=== PATIENT | female | born 1975 | race Caucasian/White ===

== ENCOUNTER 2020-08-17 10:31 | Outpatient (REF) | payer OTHER, SELFPAY ==
[2020-08-17 10:52] LABS: COVID-19 Test Negative (Negative)
== END 2020-08-17 10:32 | disposition home or self-care (01) ==
LOC: HO.LAB 10:31
PROVIDERS: Visit Provider Internal Medicine
DX: Z20.828 Contact with and (suspected) exposure to other viral communicable diseases (principal)
CPT/HCPCS: 87635

== ENCOUNTER → 2020-10-22 07:59 | Outpatient (BNVA) | payer OTHER, SELFPAY | PROVIDERS: PCP Internal Medicine; Visit Provider Advanced Practice Midwife | DX: Z76.89 Persons encountering health services in other specified circumstances (principal) ==

== ENCOUNTER 2020-10-22 14:14 | Outpatient (REF) | payer OTHER, SELFPAY ==
--- NOTE | 2020-10-22 14:30 | US_ITS ---
EXAMINATION: US PELVIS ULTRASOUND CLINICAL INFORMATION: R10.2 - Pelvic and perineal pain. Age 44. COMPARISON: Pelvic ultrasound 10/11/2018 TECHNIQUE: Ultrasound of the pelvis is performed using both transabdominal and transvaginal transducers along with Doppler. Transvaginal imaging is performed due to inadequate visualization transabdominally. FINDINGS: Uterus: The uterus is anteverted and measures 10.7 x 4.2 x 6.7 cm. The double wall endometrial thickness is normal at 9 mm. There is an IUD in position. There is a posterior right fundal intramural and subserous fibroid measuring 4.3 x 4.0 x 3.6 cm. This compares with prior measurements 1.9 x 1.9 x 1.7 cm. There is a 0.8 cm nabothian cyst in the cervix. Adnexa: Right ovary measures 3.0 x 2.0 x 2.9 cm. Left ovary measures 5.4 x 4.1 x 4.8 cm. There is a simple cyst left ovary measuring 4.0 x 3.0 x 3.3 cm. No internal septation or solid component or associated color flow. No pelvic ascites. US/US transvaginal IMPRESSION: 1. Uterus: Posterior right fundal fibroid 4.3 cm, increased in size from prior study 10/11/2018 (1.9 cm). 2. Adnexa: Simple cyst left ovary 4.0 cm. Right ovary unremarkable. No pelvic ascites.
--- NOTE | 2020-10-22 14:30 | US_ITS ---
EXAMINATION: US PELVIS ULTRASOUND CLINICAL INFORMATION: R10.2 - Pelvic and perineal pain. Age 44. COMPARISON: Pelvic ultrasound 10/11/2018 TECHNIQUE: Ultrasound of the pelvis is performed using both transabdominal and transvaginal transducers along with Doppler. Transvaginal imaging is performed due to inadequate visualization transabdominally. FINDINGS: Uterus: The uterus is anteverted and measures 10.7 x 4.2 x 6.7 cm. The double wall endometrial thickness is normal at 9 mm. There is an IUD in position. There is a posterior right fundal intramural and subserous fibroid measuring 4.3 x 4.0 x 3.6 cm. This compares with prior measurements 1.9 x 1.9 x 1.7 cm. There is a 0.8 cm nabothian cyst in the cervix. Adnexa: Right ovary measures 3.0 x 2.0 x 2.9 cm. Left ovary measures 5.4 x 4.1 x 4.8 cm. There is a simple cyst left ovary measuring 4.0 x 3.0 x 3.3 cm. No internal septation or solid component or associated color flow. No pelvic ascites. US/US pelvic complete IMPRESSION: 1. Uterus: Posterior right fundal fibroid 4.3 cm, increased in size from prior study 10/11/2018 (1.9 cm). 2. Adnexa: Simple cyst left ovary 4.0 cm. Right ovary unremarkable. No pelvic ascites.
== END 2020-10-22 14:15 | disposition home or self-care (01) ==
LOC: HO.HMGCX 14:14
PROVIDERS: PCP Internal Medicine; Visit Provider Advanced Practice Midwife
DX: Z30.431 Encounter for routine checking of intrauterine contraceptive device (principal); R10.2 Pelvic and perineal pain
CPT/HCPCS: 76830; 76856

== ENCOUNTER → 2020-10-25 09:25 | Outpatient (BNVA) | payer OTHER, SELFPAY | PROVIDERS: PCP Internal Medicine; Visit Provider Advanced Practice Midwife | DX: Z76.89 Persons encountering health services in other specified circumstances (principal) ==

== ENCOUNTER → 2021-02-11 07:42 | Outpatient (BNVA) | payer OTHER, SELFPAY | PROVIDERS: PCP Internal Medicine; Visit Provider Advanced Practice Midwife ==

== ENCOUNTER 2022-02-23 08:01 | Outpatient (REF) | payer OTHER, SELFPAY ==
[2022-02-23 09:57] LABS: Hematocrit 44.7 % (37.0-47.0); Hemoglobin 14.3 g/dl (12.0-16.0); Mean Corpuscular Hemoglobin 27.9 pg (27.0-33.0); Mean Corpuscular Volume 87.3 fL (80.0-98.0); Mean Platelet Volume 9.2 fL (9.4-12.3); Platelet Count 248 X10*3/uL (160-400); Red Blood Count 5.12 X10*6/uL (4.20-5.50); Red Cell Distribution Width 13.2 % (11.0-16.0)
[2022-02-23 11:12] LABS: Thyroid Stimulating Hormone 1.45 uIU/mL (0.32-4.0)
[2022-02-23 13:50] LABS: CT PCR NOT DETECTED (Not Detect.); NG PCR NOT DETECTED (Not Detect.)
[2022-02-24 10:54] LABS: BV Int Neg Control Negative (Negative); BV Int Pos Control Positive (Positive)
[2022-02-28 12:06] LABS: HPV mRNA E6/E7 rflx Not Detected (Not Detected)
== END 2022-02-23 08:02 | disposition home or self-care (01) ==
LOC: HO.LAB 08:01
PROVIDERS: PCP Nurse Practitioner Family; Visit Provider Advanced Practice Midwife
DX: Z01.419 Encounter for gynecological examination (general) (routine) without abnormal findings (principal); N92.1 Excessive and frequent menstruation with irregular cycle; D25.9 Leiomyoma of uterus, unspecified; R33.9 Retention of urine, unspecified; R32 Unspecified urinary incontinence; Z11.3 Encounter for screening for infections with a predominantly sexual mode of transmission; Z11.51 Encounter for screening for human papillomavirus (HPV); Z13.29 Encounter for screening for other suspected endocrine disorder; Z87.891 Personal history of nicotine dependence; Z97.5 Presence of (intrauterine) contraceptive device
CPT/HCPCS: 36415; 84443; 85027; 87480; 87491; 87510; 87591; 87624; 87660; 88142

== ENCOUNTER 2022-03-09 09:34 | Outpatient (REF) | payer OTHER, SELFPAY ==
--- NOTE | ~2022-03-09 | US_ITS ---
EXAMINATION: US PELVIS CLINICAL INFORMATION: Excessive and frequent menstruation. History of uterine fibroids. COMPARISON: 10/22/2020 pelvic ultrasound. TECHNIQUE: Ultrasound of the pelvis is performed using both transabdominal and transvaginal transducers along with Doppler. Transvaginal imaging is performed due to inadequate visualization transabdominally. FINDINGS: Uterus: Uterus: Anteverted/anteflexed measuring 10.0 x 7.3 x 7.3 cm. A large intramural fibroid in the right fundus and body measures 6.2 x 6.0 x 5.7 cm (previously 4.3 x 4.0 x 3.6 cm). An initial stripe measures up to 1.0 cm at the level the fundus. A linear echogenic focus is seen extending from the cervical canal along the posterior margin of the endometrium to the level of the fundus. No surrounding abnormality. The cervix is closed without focal abnormality. No free fluid in the cul-de-sac. Right ovary: 3.9 x 2.6 x 2.6 cm with a volume of 11.3 cc. An anechoic cyst measures 3.7 cm. Doppler showed no abnormal vascular flow. Left ovary: 4.0 x 3.0 x 2.9 cm with a volume of 18.4 cc. Doppler showed no abnormal vascular flow. US/US pelvic and transvaginal IMPRESSION: 1. Enlarged fibroid uterus with interval increase in uterine fibroid as detailed above. 2. Echogenic focus in the region of the cervix and endometrial canal posteriorly may represent an IUD. Its exact location at the level the fundus cannot be definitively determined. Correlate with history of IUD. A pelvic radiograph may be of value to assess for presence of the IUD. 3. No significant ovarian abnormality.
== END 2022-03-09 09:35 | disposition home or self-care (01) ==
LOC: HO.HMGCX 09:34
PROVIDERS: Visit Provider Advanced Practice Midwife
DX: D25.9 Leiomyoma of uterus, unspecified (principal); N92.1 Excessive and frequent menstruation with irregular cycle; Z97.5 Presence of (intrauterine) contraceptive device
CPT/HCPCS: 76830; 76856

== ENCOUNTER → 2022-03-16 15:49 | Outpatient (BNVA) | payer OTHER, SELFPAY | PROVIDERS: PCP Nurse Practitioner Family; Visit Provider Advanced Practice Midwife | DX: Z13.89 Encounter for screening for other disorder (principal) ==

== ENCOUNTER 2022-03-17 13:23 | Outpatient (REF) | payer OTHER, SELFPAY ==
--- NOTE | ~2022-03-17 | XR_ITS ---
EXAMINATION: XR PELVIS CLINICAL INFORMATION: In counterpart for routine checking of intrauterine device COMPARISON: Pelvic ultrasound 03/09/2022 TECHNIQUE: AP view of the pelvis. XR/XR pelvis 1-2V FINDINGS/IMPRESSION: Pelvic ring is intact. There are mild degenerative changes of both hips without fracture or dislocation. Sacroiliac joints appear symmetric. IUD projects over the midline pelvis.
== END 2022-03-17 13:24 | disposition home or self-care (01) ==
LOC: HO.XRAY 13:23
PROVIDERS: PCP Nurse Practitioner Family; Visit Provider Advanced Practice Midwife
DX: Z30.431 Encounter for routine checking of intrauterine contraceptive device (principal)
CPT/HCPCS: 72170

== ENCOUNTER 2022-03-31 10:37 | Outpatient (REF) | payer OTHER, SELFPAY | END 2022-03-31 10:38 | disposition home or self-care (01) | LOC: HO.LAB 10:37 | PROVIDERS: Visit Provider Advanced Practice Midwife | DX: N92.1 Excessive and frequent menstruation with irregular cycle (principal); D25.9 Leiomyoma of uterus, unspecified; Z30.432 Encounter for removal of intrauterine contraceptive device | CPT/HCPCS: 58100; 58301; 88305 ==

== ENCOUNTER 2022-06-26 08:54 | Outpatient (REF) | payer OTHER, SELFPAY ==
--- NOTE | ~2022-06-26 | MM_ITS ---
EXAMINATION: MM SCREENING DIGITAL BREAST TOMOSYNTHESIS, BILATERAL CLINICAL INFORMATION: Screening. Asymptomatic. The lifetime risk of breast cancer based on the Tyrer-Cuzick Model is 7%. COMPARISON: Mammography: 11/18/2019, 09/26/2018; outside mammography 02/14/2013 ([facility]). TECHNIQUE: Digital breast tomosynthesis is performed in both the craniocaudal and mediolateral oblique views along with computer-aided detection (CAD). Synthesized 2D images are generated from the tomosynthesis. FINDINGS: There are scattered areas of fibroglandular density (ACR BI-RADS breast composition Category b). Breast tissue composition borders on heterogeneously dense. There are no significant masses, abnormal calcifications, or other abnormalities. Parenchymal pattern is similar to prior studies. There is no developing density or architectural abnormality. The axilla and skin contours are unremarkable. No significant changes. MM/MM tomosynthesis screening BI IMPRESSION: No mammographic evidence of malignancy. ASSESSMENT: BI-RADS 1: Negative RECOMMENDATION: Routine annual mammography screening. This patient's information was entered into a reminder system with a target due date for their next mammogram.
== END 2022-06-26 08:55 | disposition home or self-care (01) ==
LOC: HO.MAMMO 08:54
PROVIDERS: Visit Provider Advanced Practice Midwife
DX: Z12.31 Encounter for screening mammogram for malignant neoplasm of breast (principal)
CPT/HCPCS: 77063; 77067

== ENCOUNTER → 2022-07-31 10:00 | Outpatient (RCR) | payer OTHER, SELFPAY ==
[2020-08-23 13:45] LABS: COVID-19 Test Negative (Negative)
[2020-08-31 11:27] LABS: COVID-19 Test Negative (Negative)
[2020-09-06 14:42] LABS: COVID-19 Test Negative (Negative)
[2020-09-30 10:03] LABS: SARS-COV-2 PCR UMBRL Not Detected
[2020-10-07 12:33] LABS: SARS-COV-2 PCR UMBRL Not Detected
[2020-10-14 10:33] LABS: SARS-COV-2 PCR UMBRL Not Detected
[2020-10-21 09:46] LABS: SARS-COV-2 PCR UMBRL Not Detected
[2020-10-28 13:26] LABS: SARS-COV-2 PCR UMBRL Not Detected
== END | disposition home or self-care (01) ==
LOC: HO.EMPCOV 08-23 13:24
PROVIDERS: Visit Provider Internal Medicine
DX: Z20.828 Contact with and (suspected) exposure to other viral communicable diseases (principal)
CPT/HCPCS: 36415; 87635; C9803; U0003

== ENCOUNTER 2022-10-23 10:42 | Outpatient (REF) | payer OTHER, SELFPAY ==
--- NOTE | ~2022-10-23 | US_ITS ---
EXAMINATION: US PELVIS CLINICAL INFORMATION: Leiomyoma of the uterus. COMPARISON: Ultrasound pelvis and transvaginal 03/09/2022. TECHNIQUE: Ultrasound of the pelvis is performed using both transabdominal and transvaginal transducers along with Doppler. Transvaginal imaging is performed due to inadequate visualization transabdominally. FINDINGS: Uterus: The uterus is anteverted, anteflexed and measures 11.9 cm in length, 8.3 cm AP and 9.3 cm in transverse dimension. The double wall endometrial thickness is 0.5 cm. The uterus is smooth in contour and has normal myometrial echogenicity. There is a solitary hypoechoic lesion in the right fundus measuring 7.2 x 7.0 x 6.7 cm. Previously it measured 6.0 x 6.2 x 5.7 cm.. There is a small anechoic cyst in the cervix. Adnexa: Both ovaries are visualized. There is normal color flow to the adnexa. There is no ovarian torsion. There is no pelvic ascites or fluid collection. Right ovary measures 3.7 x 2.3 x 2.4 cm and volume 10.7 mL. There is anechoic cyst measuring 2.0 x 2.0 x 2.4 cm. Previously right ovary measured 3.2 x 2.6 x 2.6 cm. Left ovary measures 4.2 x 3.0 x 3.0 cm and volume 19.8 mL. There is anechoic cyst measuring 2.6 x 2.7 x 2.3 cm. Previously left ovary measured 4.0 x 3.0 x 2.9 cm and volume 18.4 mL. There is no free fluid in the cul-de-sac. US/US pelvic and transvaginal IMPRESSION: 1. Solitary right fundal fibroid measuring 7.2 cm. Minimal increase in size. 2. Small nabothian cysts in the cervix. 3. Bilateral ovarian cysts. 4. There is no free fluid in the cul-de-sac.
== END 2022-10-23 10:43 | disposition home or self-care (01) ==
LOC: HO.US 10:42
PROVIDERS: Visit Provider Obstetrics & Gynecology
DX: D25.9 Leiomyoma of uterus, unspecified (principal)
CPT/HCPCS: 76830; 76856

== ENCOUNTER → 2022-10-30 14:14 | Outpatient (BNVA) | payer OTHER, SELFPAY | PROVIDERS: PCP Nurse Practitioner Family; Visit Provider Obstetrics & Gynecology | DX: Z13.89 Encounter for screening for other disorder (principal) ==

== ENCOUNTER 2022-11-08 08:06 | Outpatient (REF) | payer OTHER, SELFPAY ==
--- NOTE | ~2022-11-08 | MR_ITS ---
EXAMINATION: MRI PELVIS WITH AND WITHOUT CONTRAST CLINICAL INFORMATION: Leiomyoma of the uterus COMPARISON: Pelvic ultrasound 03/09/2022 TECHNIQUE: Multiple routine MRI sequences through the pelvis were obtained before and after the uneventful administration of 10 mL of Gadavist gadolinium-based IV contrast. FINDINGS: UTERUS: Anteverted uterus has a normal configuration and measures 9.5 x 6.6 x 8.6 cm ([id number] x anterior-posterior x transverse). Endometrium is uniform and measures 0.6 cm in thickness. Junctional zone is normal in signal and thickness. A 6.7 x 6.3 x 6.1 cm heterogeneous T2 hyperintense transmural myoma in the right body of the uterus, with heterogeneous enhancement, with a T2 hyperintense signal suggesting cystic degeneration. CERVIX: Unremarkable. VAGINA: Unremarkable. OVARIES: The right ovary is unremarkable. The left ovary is remarkable for a 3.2 cm intrinsically T1 hyperintense lesion with a T2 shading sign suggestive of an endometrioma. KIDNEYS: Two normally positioned kidneys are seen. No hydronephrosis. BLADDER: Unremarkable. PELVIC FREE FLUID: No free fluid or ascites. LYMPH NODES: No pathologically enlarged lymph nodes. OSSEOUS STRUCTURES: No acute or suspicious osseous abnormalities. MR/MR pelvis wo/w con IMPRESSION: A 6.7 cm transmural myoma in the right body of the uterus demonstrating heterogeneous T2 hyperintense signal and heterogeneous enhancement suggesting cystic degeneration. A 3.2 cm intrinsically T1 hyperintense lesion in the right ovary with a T2 shading sign suggesting an endometrioma, although differential considerations could include a hemorrhagic cyst. Recommend short interval follow-up pelvic ultrasound in 6-12 weeks, and if findings persist annual sonographic surveillance.
== END 2022-11-08 08:07 | disposition home or self-care (01) ==
LOC: HO.MRI 08:06
PROVIDERS: PCP Nurse Practitioner Family; Visit Provider Obstetrics & Gynecology
DX: D25.9 Leiomyoma of uterus, unspecified (principal)
CPT/HCPCS: 72197; A9585

== ENCOUNTER 2022-11-28 12:24 | Outpatient (REF) | payer OTHER, SELFPAY ==
[2022-11-30 09:39] LABS: CA-125 17 U/mL (<35)
== END 2022-11-28 12:25 | disposition home or self-care (01) ==
LOC: HO.LAB 12:24
PROVIDERS: PCP Nurse Practitioner Family; Visit Provider Obstetrics & Gynecology
DX: N83.299 Other ovarian cyst, unspecified side (principal); D25.9 Leiomyoma of uterus, unspecified
CPT/HCPCS: 36415; 86304

== ENCOUNTER 2023-01-29 10:35 | Outpatient (REF) | payer OTHER, SELFPAY ==
--- NOTE | ~2023-01-29 | US_ITS ---
EXAMINATION: US PELVIS CLINICAL INFORMATION: Leiomyoma of uterus. COMPARISON: Pelvic ultrasound 10/23/2022 TECHNIQUE: Ultrasound of the pelvis is performed using both transabdominal and transvaginal transducers along with Doppler. Transvaginal imaging is performed due to inadequate visualization transabdominally. FINDINGS: Uterus: The uterus is anteverted and measures 7.9 x 4.5 x 8.6 cm. The double wall endometrial thickness is 1.6 mm. There is a right fundal fibroid measuring 6.7 x 5.4 x 5.8 cm, previously measuring 7.2 x 7.0 x 6.7 cm. Adnexa: Both ovaries are visualized. There is normal color flow to the adnexa. There is no ovarian torsion. There is no pelvic ascites or fluid collection. Right ovary measures 3.2 x 2.1 x 2.1 cm. Volume 7.4 mL. 1.7 cm cyst with debris has decreased in size from the prior pelvic MRI and is most likely sequela of a hemorrhagic cyst. Left ovary measures 3.2 x 2.7 x 2.6 cm. Volume 11.8 mL. 2.3 cm physiologic cyst in the left ovary. US/US pelvic and transvaginal IMPRESSION: Stable to slightly decreased right fundal fibroid.
== END 2023-01-29 10:36 | disposition home or self-care (01) ==
LOC: HO.US 10:35
PROVIDERS: PCP Nurse Practitioner Family; Visit Provider Obstetrics & Gynecology
DX: N83.299 Other ovarian cyst, unspecified side (principal); D25.9 Leiomyoma of uterus, unspecified
CPT/HCPCS: 76830; 76856

== ENCOUNTER → 2023-02-12 12:33 | Outpatient (BNVA) | payer OTHER, SELFPAY | PROVIDERS: PCP Nurse Practitioner Family; Visit Provider Obstetrics & Gynecology | DX: Z13.89 Encounter for screening for other disorder (principal) ==

== ENCOUNTER → 2023-02-27 07:57 | Outpatient (BNVA) | payer OTHER, SELFPAY | PROVIDERS: PCP Nurse Practitioner Family; Visit Provider Advanced Practice Midwife ==

== ENCOUNTER 2023-05-16 10:48 | Outpatient (REF) | payer OTHER, SELFPAY ==
--- NOTE | ~2023-05-16 | US_ITS ---
EXAMINATION: US PELVIS COMPLETE CLINICAL INFORMATION: Ovarian cyst COMPARISON: Pelvic ultrasound 01/29/2023 TECHNIQUE: Transabdominal and transvaginal imaging was performed. FINDINGS: The uterus is of enlarged measuring 12.2 x 8.1 x 8.6 cm. A regular homogeneous endometrium is identified measuring 0.7 cm. Nabothian cysts in the cervix. A 7.2 x 7.0 x 7.5 cm transmural myoma in the right fundus of the uterus, previously 6.7 x 5.4 x 5.8 cm Both ovaries are of normal size and echogenicity. The right measures 3.0 x 2.4 x 2.4 cm for a volume of 9.1 mL. The left measures 3.2 x 2.5 x 2.8 cm for a volume of 11.4 mL with only visualized transabdominally. No suspicious adnexal mass. There is no pelvic free fluid. US/US pelvic and transvaginal IMPRESSION: 1. A 7.5 cm transmural myoma in the right fundus of the uterus, previously 6.7 cm. 2. Unremarkable sonographic appearance of the ovaries.
== END 2023-05-16 10:49 | disposition home or self-care (01) ==
LOC: HO.US 10:48
PROVIDERS: Visit Provider Obstetrics & Gynecology
DX: N83.299 Other ovarian cyst, unspecified side (principal); D25.9 Leiomyoma of uterus, unspecified
CPT/HCPCS: 76830; 76856

== ENCOUNTER 2023-05-30 21:40 | Day surgery (SDC) | payer OTHER, SELFPAY ==
--- NOTE | ~2023-05-30 | XR_ITS ---
EXAMINATION: XR ABDOMEN KUB CLINICAL INDICATION: Constipation abdominal pain. COMPARISON: None available. TECHNIQUE: AP view of the abdomen. FINDINGS: There is scattered stool and gas in the colon without any distention. There is no organomegaly. No radiopaque calculi. No bony abnormality. XR/XR KUB IMPRESSION: Unremarkable abdomen exam.
--- NOTE | ~2023-05-30 | CT_ITS ---
EXAMINATION: CT ABDOMEN AND PELVIS WITH CONTRAST CLINICAL INFORMATION: Abdominal pain COMPARISON: None available. TECHNIQUE: Multidetector volumetric images were obtained from the superior aspect of the liver through the pubic symphysis following administration 85 mL of Omnipaque 350 intravenous contrast. Sagittal and coronal reformatted images were obtained on the technologist's workstation. Oral contrast: No This CT examination was performed using dose optimization techniques as appropriate, variously including the following: *Automated exposure control *Adjustment of mA and/or kV according to patient size (this includes techniques or standardized protocols for targeted exams where dose is matched to indication/reason for exam; i.e. extremities or head) *Use of iterative reconstruction technique DLP: 875 mGy-cm FINDINGS: LUNG BASES: The visualized lung bases are unremarkable. LIVER, GALLBLADDER, AND BILIARY TREE: The liver is normal in size, shape, and attenuation. No focal hepatic lesion or biliary ductal dilatation is present. The gallbladder is unremarkable with no evidence of radiopaque gallstones, gallbladder wall thickening, or obvious pericholecystic inflammatory changes. PANCREAS: Unremarkable. SPLEEN: Unremarkable. ADRENAL GLANDS: Unremarkable. KIDNEYS AND URETERS: The kidneys are normal in size, shape, and attenuation. No hydronephrosis, hydroureter, or calculi seen. No perinephric stranding. BLADDER: Unremarkable. GASTROINTESTINAL TRACT: The appendix is thick walled, dilated and opacified, measuring 20 mm in diameter with irregular wall thickening up to 7 mm. Periappendiceal infiltration and fluid are evident, though no drainable collection is detected. There is not an appendicolith. Small nodes are evident in the right lower quadrant mesentery, the largest measuring 5 mm in short axis. The remainder of the colon and the small bowel are otherwise unremarkable, as is the stomach. ABDOMINAL WALL: No significant hernia is appreciated. LYMPH NODES: Normal. VASCULAR: Unremarkable. PELVIC VISCERA: There is a 6.5 x 6 cm mass in the right side of the uterine fundus, deviating the endometrium to the left, most likely a leiomyoma, not significantly changed from pelvic MRI of 11/08/2022. OSSEOUS STRUCTURES: Unremarkable. CT/CT abdomen pelvis w IV con IMPRESSION: 1. Acute appendicitis. 2. Uterine fundal mass likely a leiomyoma, unchanged since pelvic MRI of 11/08/2022. 3. Findings were reported by phone to Kelsey Jason in the [facility] emergency department on 05/31/2023 at 9:00 AM. Fleischner guidelines were followed.
[2023-05-30 22:05] VITALS: BP 131/86; PULSE 90; RESP 16; TEMP 36.9; O2SAT 98; BMI 38.4
--- NOTE | 2023-05-30 23:18 | MHC.EDTECH ---
Pt urine sample collected and sent to lab.
--- OUTSIDE RECORDS SUMMARY | 2023-05-30 23:22 | XMS_ITS | Continuity of Care Document ---
Author Name Unknown Organization [facility] Address [address] [place] [address]- Care Team Providers Care Care Companion Name Role Phone Donaldo AMERICAN INDIAN POLICY SPECIALIST, Priyanka M Primary Care Physician Encounter [facility] Date(s): 04/08/21 - 04/15/21 [facility] [address] [address]- Encounter Diagnosis Obesity(Discharge Diagnosis) - 04/08/21 Chronic GERD(Discharge Diagnosis) - 04/08/21 Physical exam(Discharge Diagnosis) - 04/08/21 SOB (shortness of breath)(Discharge Diagnosis) - 04/10/21 Chronic pain of right knee(Discharge Diagnosis) - 04/10/21 Attending Physician: Doug Cardona MD Allergies, Adverse Reactions, Alerts Substance Reaction Severity Status NKA Active Immunizations Given and Recorded Vaccine Date Status Refusal Reason influenza virus vaccine, inactivated 1 08/24/15 Gi teresa Hepatitis B Vaccine (old term) 04/05/10 Given Hepatitis B Vaccine (old term) 2 02/16/06 Given Hepatitis B Vaccine (old term) 3 01/17/06 Given Measles/Mumps/Rubella Virus Vaccine 04/05/10 Given Measles/Mumps/Rubella Virus Vaccine 4 07/23/09 Giv en influ virus vac, H1N1, inactive(oldterm) 5 10/28/09 Given Influenza Inactive (IM) (oldterm) 6 07/12/09 Given tetanus-diphtheria toxoids (Td) 10/15/03 Given 1Result Comment: [08/24/2015] questionaire answered adequately 2Admin Note: VIS: O04/14 3Admin Note: [id number] 4Admin Note: vis given disposed of vial before recording lot # 5Admin Note: 2008 VIS FORM GIVEN 6Admin Note: vis given Medications No Home Meds Maintenance, 09/21/14 9:55:36, Compound Start Date: 09/21/14 Status: Ordered omeprazole 20 mg oral delayed release tablet 1 tablet = 20 mg, By Mouth, Daily, # 90 tablet, 0 Refills, Maintenance, 04/08/21 12:55:00 EDT, CR Tablet, [id number], Partial fill upon patient request if the prescription is for a schedule II opioid drug., 163.5, cm, 04/08/21 12:33:00 EDT, He... Start Date: 04/08/21 Stop Date: 07/07/21 Status: Ordered Problem List Condition Effective Dates Status Health Status Inform ant Bloody discharge from nipple(Confirmed) 02/14/13 Active External otitis of right ear(Confirmed) 04/18/13 Active Chronic GERD(Confirmed) Active Healthy adult(Confirmed) Active Mastodynia(Confirmed) 02/14/13 Active Obesity(Confirmed) Active Diagnosis Diagnosis Type Effective Dates Health Status Cl inical Service Informant Obesity Discharge Diagnosis 04/08/21 Chronic GERD Discharge Diagnosis 04/08/21 Physical exam Discharge Diagnosis 04/08/21 SOB (shortness of breath) Discharge Diagnosis 04/10/21 Chronic pain of right knee Discharge Diagnosis 04/10/21 Vital Signs Most recent to oldest [Reference Range]: 1 Height 163.5 cm (04/08/21 12:33 PM) Weight 104.8 kg (04/08/21 12:33 PM) Oxygen Saturation [94-100 %] 99 % (04/08/21 12:33 PM) Pulse Rate [55-90 bpm] 73 bpm (04/08/21 12:33 PM) Body Mass Index [18.5-24.99] 39.2 *>HHI* (04/08/21 12:33 PM) Blood Pressure [90-138/55-84 mm Hg] 118/ 86mm Hg (04/08/21 12:33 PM) Temperature [96.8-100.4 DegF] 96.8 DegF (04/08/21 12:33 PM) Mode of Delivery (Oxygen) Room air (04/08/21 12:33 PM) Blood pressure sites Arm, left (04/08/21 12:33 PM) Temperature Route Temporal (04/08/21 12:33 PM) Weight Obtained Via Standing scale (04/08/21 12:33 PM) Social History Social History Type Response Smoking Status Former smoker, quit more than 30 days ago entered on: 10/01/18 Sex
--- OUTSIDE RECORDS SUMMARY | 2023-05-30 23:22 | XMS_ITS | Continuity of Care Document ---
Author Name Unknown Organization [facility] Address [address] [id number]- Care Team Providers Care Wool Tamper Name Role Phone Donaldo REIMBURSEMENT AUDITOR, Priyanka M Primary Care Physician Encounter [facility] Date(s): 02/13/22 - 03/15/22 [facility] [address] [place] [address]- [place] Allergies, Adverse Reactions, Alerts No Known Allergies Immunizations Given and Recorded Vaccine Date Status Refusal Reason influenza virus vaccine, inactivated 08/26/21 Emerson rded influenza virus vaccine, inactivated 1 08/24/15 Gi teresa SARS-CoV-2 (COVID-19) mRNA BNT-162b2 vac 05/25/21 Recorded tetanus/diphtheria/pertussis, acel(Tdap) 08/27/18 Recorded Hepatitis B Vaccine (old term) 04/05/10 Given [...] adequately 2Admin Note: VIS: O04/14 3Admin Note: [id number] 4Admin Note: vis given disposed of vial before recording lot # 5Admin Note: 2008 VIS FORM GIVEN 6Admin Note: vis given Medications No Home Meds Maintenance, 09/21/14 9:55:36, Compound Start Date: 09/21/14 Status: Ordered omeprazole 20 mg oral delayed release tablet 1 tablet = 20 mg, By Mouth, Daily, # 90 tablet, 0 Refills, Maintenance, 04/08/21 12:55:00 EDT, CR Tablet, [facility]/pharm[facility] #[id number], Partial fill upon patient request if the prescription is for a schedule II opioid drug., 163.5, cm, 04/08/21 12:33:00 EDT, He... Start Date: 04/08/21 Stop Date: 07/07/21 Status: Ordered Problem List Condition Effective Dates Status Health Status Inform ant Bloody discharge from nipple(Confirmed) 02/14/13 Active External otitis of right ear(Confirmed) 04/18/13 Active Chronic GERD(Confirmed) Active Healthy adult(Confirmed) Active Mastodynia(Confirmed) 02/14/13 Active Obese class II(Confirmed) Active Obesity(Confirmed) Active Social History Social History Type Response Smoking Status Former smoker, quit more than 30 days ago entered on: 10/01/18 Sex
--- OUTSIDE RECORDS SUMMARY | 2023-05-30 23:22 | XMS_ITS | Continuity of Care Document ---
Author Name Unknown Organization [facility] Address [address] [id number]- Care Team Providers Care Mini Baccarat Dealer Name Role Phone Donaldo STENCILER, Priyanka M Primary Care Physician En[facility] Date(s): 02/07/22 - 03/09/22 [facility] [address] [address]- Attending Physician: Lc Hoover Admitting Physician: AdmLc seth Referring Physician: Admtr ArAna Allergies, Adverse Reactions, Alerts No Known Allergies [...] adequately 2Admin Note: VIS: O04/14 3Admin Note: [id number] 4Admin Note: vis given disposed of vial before recording lot # 5Admin Note: 2008 VIS FORM GIVEN 6Admin Note: vis given Medications No Home Meds Maintenance, 09/21/14 9:55:36, Compound Start Date: 09/21/14 Status: Ordered omeprazole 20 mg oral delayed release tablet 1 tablet = 20 mg, By Mouth, Daily, # 90 tablet, 0 Refills, Maintenance, 04/08/21 12:55:00 EDT, CR Tablet, [facility]/pharmacy #[id number], Partial fill upon patient request if [...]
--- OUTSIDE RECORDS SUMMARY | 2023-05-30 23:22 | XMS_ITS | Continuity of Care Document ---
Author Name Unknown Organization [facility] Address [address] [place] [address]- Care Team Providers Care Copyright Manager Name Role Phone Donaldo CANDY FEEDER, Priyanka M Primary Care Physician Encounter [facility] [id number] Date(s): 05/19/21 - 08/03/21 [facility] [address] [place] [address]- Attending Physician: Not on Staff, Attending MD Allergies, Adverse Reactions, Alerts Substance Reaction [...] adequately 2Admin Note: VIS: O04/14 3Admin Note: [id number] 4Admin Note: vis given disposed of vial before recording lot # 5Admin Note: 2008 VIS FORM GIVEN 6Admin Note: vis given Medications No Home Meds Maintenance, 09/21/14 9:55:36, Compound Start Date: 09/21/14 Status: Ordered omeprazole 20 mg oral delayed release tablet 1 tablet = 20 mg, By Mouth, Daily, # 90 tablet, 0 Refills, Maintenance, 04/08/21 12:55:00 EDT, CR Tablet, [facility]/pharmacy #[id number], Partial fill upon patient request [...] adult(Confirmed) Active Mastodynia(Confirmed) 02/14/13 Active Obesity(Confirmed) Active Social History Social History Type Response Smoking Status Former smoker, quit more than 30 days ago entered on: 10/01/18 Sex
--- OUTSIDE RECORDS SUMMARY | 2023-05-30 23:22 | XMS_ITS | Continuity of Care Document ---
Author Name Unknown Organization [facility] Address [address] [place] [address]- Care Team Providers Care Underliner Name Role Phone Donaldo MARKETING INTELLIGENCE ANALYST, Priyanka M Primary Care Physician [phone] Encounter [facility] Date(s): 07/04/21 - 08/03/21 [facility] [address] [place] [address]- Attending Physician: Lc Hoover Admitting Physician: Lc Hoover Referring Physician: AdmtrLc Allergies, Adverse Reactions, Alerts Substance Reaction Severity [...] adequately 2Admin Note: VIS: O04/14 3Admin Note: [id number] 4Admin Note: vis given disposed of vial before recording lot # 5Admin Note: 2008 VIS FORM GIVEN 6Admin Note: vis given Medications No Home Meds Maintenance, 09/21/14 9:55:36, Compound Start Date: 09/21/14 Status: Ordered omeprazole 20 mg oral delayed release tablet 1 tablet = 20 mg, By Mouth, Daily, # 90 tablet, 0 Refills, Maintenance, 04/08/21 12:55:00 EDT, CR Tablet, [facility]/pharmacy #[id number], Partial fill upon patient request if [...]
--- OUTSIDE RECORDS SUMMARY | 2023-05-30 23:22 | XMS_ITS | Continuity of Care Document ---
Author Name Unknown Organization [facility] Address [address] [place] [address]- Care Team Providers Care Music Theory Teacher Name Role Phone Donaldo CATERING SALES MANAGER, Priyanka Sierra Primary Care Physician [phone] Encounter [facility] Date(s): 01/29/22 - 01/29/[address] [address]- Encounter Diagnosis MCL sprain of right knee(Final) - 01/29/22 Discharge Disposition: A-D/C Home Attending Physician: Aelks Rousseau MD Admitting Physician: Aleks Rousseau MD Referring Physician: Not on Staff, Referring MD Allergies, Adverse Reactions, Alerts No Known Allergies [...] adequately 2Admin Note: VIS: O04/14 3Admin Note: [id number] 4Admin Note: vis given disposed of vial before recording lot # 5Admin Note: 2008 VIS FORM GIVEN 6Admin Note: vis given Medications No Home Meds Maintenance, 09/21/14 9:55:36, Compound Start Date: 09/21/14 Status: Ordered omeprazole 20 mg oral delayed release tablet 1 tablet = 20 mg, By Mouth, Daily, # 90 tablet, 0 Refills, Maintenance, 04/08/21 12:55:00 EDT, CR Tablet, [facility]/pharmacy #[id number], Partial fill upon patient request [...] adult(Confirmed) Active Mastodynia(Confirmed) 02/14/13 Active Obesity(Confirmed) Active Results Radiology Reports * Exam Date Time Procedure Performing Provider Status 01/29/22 11:07 AM Knee 3 Views Right Levon Moses; Auth (Verified) Notes: (Knee 3 Views Right) Reason For Exam: Trauma RESULT: Knee 3 Views Right Knee 3 Views Right Hx of Present Illness: dog versus right knee 1 week ago - today while running down hill twisted it;Reason: Trauma; Clinical Question(s): Fracture COMPARISON: 04/08/2021 FINDINGS: There is no evidence of acute or healing fracture, dislocation or bone lesion. Bone mineralization is normal. Spurring is noted along the medial tibial plateau. No other osseous degenerative changes are present. Joint compartments are preserved. No osteochondral defects or intra-articular loose bodies. No evidence of joint effusion. IMPRESSION: No acute abnormality. Small degenerative osteophyte along the medial tibial plateau. Otherwise normal. WSN: [id number] Ordering Physician: Aleks Rousseau Dictated By: Levon Cates MD Dictated Date/Time: 01/29/22 11:52 a Reviewed By: Levon Cates MD Signed By: Levon Cates MD Signed Date/Time: 01/29/22 11:52 am Transcribed By: SHEILA Transcribed Date/Time: 01/29/22 11:51 am Vital Signs Most recent to oldest [Reference Range]: 1 Height 170 cm (01/29/22 10:55 AM) Weight 105 kg (01/29/22 10:55 AM) Oxygen Saturation [94-100 %] 100 % (01/29/22 10:55 AM) Pulse Rate [55-90 bpm] 82 bpm (01/29/22 10:55 AM) Blood Pressure [90-138/55-84 mm Hg] 140/ 79mm Hg *H* (01/29/22 10:55 AM) Respiratory Rate [16-30 br/min] 18 br/mi n (01/29/22 10:55 AM) Temperature [96.8-100.4 DegF] 97.8 DegF (01/29/22 10:55 AM) Mode of Delivery (Oxygen) Room air (01/29/22 10:55 AM) Temperature Route Temporal (01/29/22 10:55 AM) Dry Weight 105 kg (01/29/22 10:55 AM) Weight Obtained Via Patient/family state d (01/29/22 10:55 AM) Dry Weight Obtained Via Patient/family s tated (01/29/22 10:55 AM) Social History Social History Type Response Smoking Status Former smoker, quit more than 30 days ago entered on: 10/01/18 Sex
--- OUTSIDE RECORDS SUMMARY | 2023-05-30 23:22 | XMS_ITS | Continuity of Care Document ---
Author Name Unknown Organization [facility] Address [address] [place] [address]- Care Team Providers Care Fisheries Director Name Role Phone Donaldo INTERVENTIONAL TECH, Priyanka Sierra Primary Care Physician [phone] [facility] Date(s): 04/21/21 - 05/21/21 [facility] [address] [place] [address]- Allergies, Adverse Reactions, Alerts Substance Reaction Severity [...] adequately 2Admin Note: VIS: O04/14 3Admin Note: [id number] 4Admin Note: vis given disposed of vial before recording lot # 5Admin Note: 2008 VIS FORM GIVEN 6Admin Note: vis given Medications No Home Meds Maintenance, 09/21/14 9:55:36, Compound Start Date: 09/21/14 Status: Ordered omeprazole 20 mg oral delayed release tablet 1 tablet = 20 mg, By Mouth, Daily, # 90 tablet, 0 Refills, Maintenance, 04/08/21 12:55:00 EDT, MEGA Aguillon, [facility]/pharmacy #[id number], Partial fill upon patient request if [...]
--- OUTSIDE RECORDS SUMMARY | 2023-05-30 23:22 | XMS_ITS | Continuity of Care Document ---
Author Name Unknown Organization [facility] Address [address] [place] [address]- Care Team Providers Care Floor Trader Name Role Phone Donaldo ENGRAVING SUPERVISOR, Priyanka Sierra Primary Care Physician Encounter [facility] Date(s): 04/24/21 - 05/24/21 [facility] [address] [place] [address]- Allergies, Adverse Reactions, Alerts Substance Reaction Severity [...] adequately 2Admin Note: VIS: O04/14 3Admin Note: [id number] 4Admin Note: vis given disposed of vial before recording lot # 5Admin Note: 2008 VIS FORM GIVEN 6Admin Note: vis given Medications No Home Meds Maintenance, 09/21/14 9:55:36, Compound Start Date: 09/21/14 Status: Ordered omeprazole 20 mg oral delayed release tablet 1 tablet = 20 mg, By Mouth, Daily, # 90 tablet, 0 Refills, Maintenance, 04/08/21 12:55:00 EDT, MEGA Aguillon, [facility]/pharmacy #[id number], Partial fill upon patient request if the prescription is for a schedule II opioid drug., 163.5, cm, 04/08/21 12:33:00 EDT, Alirio... Start Date: 04/08/21 Stop Date: 07/07/21 Status: [...]
--- OUTSIDE RECORDS SUMMARY | 2023-05-30 23:22 | XMS_ITS | Continuity of Care Document ---
Author Name Unknown Organization [facility] Address [address] [place] [address]- Care Team Providers Care Rolling Chair Pusher Name Role Phone Donaldo OCCUP THERAPIST, Priyanka M Primary Care Physician Encounter [facility] Date(s): 02/07/22 - 02/14/22 [facility] [place] [address]- [place] Encounter Diagnosis Right knee pain(Discharge Diagnosis) - 02/10/22 Attending Physician: Not on Staff, Attending MD Allergies, Adverse Reactions, Alerts No Known [...] adequately 2Admin Note: VIS: O04/14 3Admin Note: [id number] 4Admin Note: vis given disposed of vial [...] Active Obese class II(Confirmed) Active Obesity(Confirmed) Active Diagnosis Diagnosis Type Effective Dates Health Status Cl inical Service Informant Right knee pain Discharge Diagnosis 02/10/22 Vital Signs Most recent to oldest [Reference Range]: 1 Height 170 cm (02/07/22 3:53 PM) Weight 109.4 kg (02/07/22 3:53 PM) Oxygen Saturation [94-100 %] 99 % (02/07/22 3:53 PM) Pulse Rate [55-90 bpm] 108 bpm *H* (02/07/22 3:53 PM) Body Mass Index [18.5-24.99] 37.85 *>HHI* (02/07/22 3:53 PM) Blood Pressure [90-138/55-84 mm Hg] 132/ 80mm Hg (02/07/22 3:53 PM) Temperature [96.8-100.4 DegF] 97.7 DegF (02/07/22 3:53 PM) Mode of Delivery (Oxygen) Room air (02/07/22 3:53 PM) Blood pressure sites Arm, right (02/07/22 3:53 PM) Temperature Route Temporal (02/07/22 3:53 PM) Weight Obtained Via Standing scale (02/07/22 3:53 PM) Social History Social History Type Response Smoking Status Former smoker, quit more than 30 days ago entered on: 10/01/18 Sex
--- OUTSIDE RECORDS SUMMARY | 2023-05-30 23:22 | XMS_ITS | Continuity of Care Document ---
Author Name Unknown Organization [facility] Address [address] [place] [address]- Care Team Providers Care Digital Solution Architect Name Role Phone Donaldo GLASS CUTTER HELPER, Priyanak Sierra Primary Care Physician [phone] Encounter [facility] Date(s): 05/19/21 - 06/18/21 [facility] [address] [place] [address]- [place] Allergies, Adverse Reactions, Alerts Substance Reaction Severity [...] adequately 2Admin Note: VIS: O04/14 3Admin Note: [id number] 4Admin Note: vis given disposed of vial [...] II opioid drug., 163.5, cm, 04/08/21 12:33:00 EDTGhassan. Start Date: 04/08/21 Stop Date: 07/07/21 Status: [...]
--- OUTSIDE RECORDS SUMMARY | 2023-05-30 23:22 | XMS_ITS | Continuity of Care Document ---
Author Name Unknown Organization [facility] Address [address] [place] [id number]- Care Team Providers Care Airset Caster Name Role Phone Donaldo KNITTING TEACHER, Priyanka Sierra Primary Care Physician Encounter [facility] Date(s): 04/01/22 - 04/01/[address] [address] Attending Physician: Not on Staff, Attending MD [...] adequately 2Admin Note: VIS: O04/14 3Admin Note: [id number] 4Admin Note: vis given disposed of vial before recording lot # 5Admin Note: 2008 VIS FORM GIVEN 6Admin Note: vis given Medications No Home Meds Maintenance, 09/21/14 9:55:36, Compound Start Date: 09/21/14 Status: Ordered omeprazole 20 mg oral delayed release tablet 1 tablet = 20 mg, By Mouth, Daily, # 90 tablet, 0 Refills, Maintenance, 04/08/21 12:55:00 EDT, CR Tablet, [facility]/pharmacy #[id number], Partial fill upon patient request if the [...]
--- OUTSIDE RECORDS SUMMARY | 2023-05-30 23:22 | XMS_ITS | Continuity of Care Document ---
Author Name Unknown Organization [facility] Address [address] [place] [address]- Care Team Providers Care Termite Helper Name Role Phone Donaldo COMER, Priyanka Sierra Primary Care Physician [phone] Encounter [facility] Date(s): 04/08/21 - 08/04/21 [facility] [address] [place] [address]- Attending Physician: Priyanka Fulton NP Allergies, Adverse Reactions, Alerts Substance Reaction Severity [...] adequately 2Admin Note: VIS: O04/14 3Admin Note: [id number] 4Admin Note: vis given disposed of vial before recording lot # 5Admin Note: 2008 VIS FORM GIVEN 6Admin Note: vis given Medications No Home Meds Maintenance, 09/21/14 9:55:36, Compound Start Date: 09/21/14 Status: Ordered omeprazole 20 mg oral delayed release tablet 1 tablet = 20 mg, By Mouth, Daily, # 90 tablet, 0 Refills, Maintenance, 04/08/21 12:55:00 EDT, CR Tablet, [facility]/pharmacy #[id number], Partial fill upon patient [...]
--- NOTE | 2023-05-30 23:23 | MHC.EDTECH ---
patient blood drawn and sent to lab .
[2023-05-30 23:25] LABS: MANUAL DIFF FLAG NO
[2023-05-30 23:28] LABS: Basophils Absolute Auto 0.1 X10*3/uL (0.0-0.2); Basophils Percent Auto 0.3 % (0-2); Hematocrit 42.4 % (37.0-47.0); Hemoglobin 13.9 g/dl (12.0-16.0); Imm Gran Abs Auto 0.08 X10*3/uL (0.00-0.03); Imm Gran Pct Auto 0.4 % (0.0-0.4); Lymphocytes Absolute Auto 1.3 X10*3/uL (1.2-4.9); Lymphocytes Percent Auto 6.8 % (20-40); Mean Corpuscular HGB Conc 32.8 g/dl (31.0-35.0); Mean Corpuscular Hemoglobin 26.8 pg (27.0-33.0); Mean Corpuscular Volume 81.9 fL (80.0-98.0); Mean Platelet Volume 8.6 fL (9.4-12.3); Monocytes Absolute Auto 0.7 X10*3/uL (0.1-1.2); Monocytes Percent Auto 3.7 % (2-11); Neutrophils Absolute Auto 17.2 x10*3/uL (2.0-8.3); Neutrophils Percent Auto 88.8 % (45-73); Platelet Count 278 X10*3/uL (160-400); Red Blood Count 5.18 X10*6/uL (4.20-5.50); Red Cell Distribution Width 13.8 % (11.0-16.0); White Blood Count 19.4 X10*3/uL (4.8-10.8)
[2023-05-30 23:29] LABS: Appearance Urine Cloudy; Bacteria Urine None Seen (None Seen); Color Urine Dark Yellow; Glucose Urine UA Negative (Negative); Hyaline Casts Urine 0-2 /LPF (0-2); Leukocyte Esterase Urine Trace (Negative); Nitrite Urine Negative (Negative); PH 5.5 (5.0-9.0); RBC Urine >20 /HPF (0-2); Specific Gravity - Urine >= 1.030 (1.005-1.025); UACC Culture Trigger YES; UMIC TRIGGER UACC YES; Urine Blood Large (3+) (Negative); Urine Ketones 15 mg/dL (Negative); Urine Protein 300 (3+) mg/dL (Neg-Trace)
[2023-05-30 23:41] LABS: Alanine Aminotransferase 13 U/L (0-31); Albumin Level 4.1 g/dL (3.5-5.0); Alkaline Phosphatase 69 U/L (39-117); Anion Gap 13 (12-20); Aspartate Amino Transferase 13 U/L (5-31); Bilirubin Total 0.4 mg/dL (0.0-1.0); Blood Urea Nitrogen 12 mg/dL (9-16); Calcium 9.6 mg/dL (8.4-10.2); Carbon Dioxide 24 mmol/L (22-29); Chloride 102 mmol/L (96-108); Creatinine Clr Calc Pharmacy 103.7; Estimated Glomerular Filt Rate > 60; Glucose Random 175 mg/dL (60-115); Lipase 14 U/L (8-78); Potassium 4.2 mmol/L (3.3-5.1); Sodium 135 mmol/L (135-145); Total Protein 8.1 g/dL (6.5-8.0)
[2023-05-31] VITALS (16 sets, daily range): BP systolic 107–153; BP diastolic 64–108; PULSE 77–95; RESP 16–20; TEMP 36.1–37.4; O2SAT 92–100
--- NOTE | 2023-05-31 04:25 | PC.NURSE ---
pt placed in room 18 from waiting room. changed into hospital gown, iv line placed, 1 liter normal saline fluids started. pt reporting mid upper abdominal pain that radiates to the R side that started about 1 day ago, woke up with a stomach ache and it has progressed throughout the day, hurts to drink water or eat food.. also reporting constipation - only had 2 very small bowel movements today. pt has Hx uterine fibroids and an enlarged uterus - says she is currently under the care of Dr. Sharpe for this. pt unsure if that is contributing to her abdominal pain today. pt given call kelly within reach and now waiting to be seen by ED provider
--- NOTE | 2023-05-31 05:41 | PC.NURSE ---
pt asleep comfortably on stretcher in no apparent distress - respirations even and unlabored. call kelly within reach. waiting to be seen by ED provider.
--- NOTE | 2023-05-31 06:49 | ED.GENADULT ---
HPI - General Adult General Chief complaint: Abdominal Pain Stated complaint: Abd pain Time Seen by Provider: 05/31/23 06:49 Source: patient Mode of arrival: ambulatory Limitations: no limitations History of Present Illness HPI narrative: Patient is a 47 year old assigned female at with a history of uterine fibroids and ADHD presenting to the emergency department today with abdominal pain, nausea, and vomiting. Patient states that she has been having abdominal pain, nausea, and vomiting since this morning. Patient denies any dizziness, lightheadedness, fever, chills, blurry vision, double vision, loss of vision, chest pain, difficulty breathing, shortness of breath, back pain, night sweats, pain with urination, increased urinary frequency, increased urinary urgency, blood in her urine or stool, syncope or a near syncopal episode, recent trauma or falls, bowel incontinence, bladder incontinence, bowel retention, bladder retention, or any other complaints at this time. Onset (ago): hour(s) Location: abdomen Radiation: non-radiation Severity: mild Severity scale (1-10): 4 Quality: aching and dull Pain Consistency: constant Relieving factors: none Exacerbating factors: none Associated symptoms: nausea/vomiting Treatments prior to arrival: none Related Data Home Medications Medication Instructions Recorded Confirmed omeprazole magnesium 20 mg 20 mg PO DAILY 08/11/20 08/11/20 tablet,delayed release vitamin B complex-vitamin C-folic 1 tab PO DAILY 03/16/22 acid 5 mg tablet glucosamine-chondroitin 250 mg-200 2 tab PO TID 04/13/22 mg tablet (Osteo Bi-Flex) magnesium 200 mg tablet 200 mg PO DAILY 04/13/22 Previous Rx's Medication Instructions Recorded norethindrone (contraceptive) 0.35 0.35 mg PO DAILY #84 tabs 02/27/23 mg tablet ([place]) Allergies Allergy/AdvReac Type Severity Reaction Status Date / Time No Known Allergies Allergy Verified 05/31/23 07:35 [No Known Allergies*] Review of Systems Constitutional: Constitutional: Reports no additional constitutional complaints, Denies chills, Denies fever(s) and Denies night sweats Eyes: Eyes: Reports no additional eye complaints, Denies blurry vision, Denies change in vision, Denies diplopia, Denies eye discharge, Denies loss of vision and Denies eye pain ENT: Denies dizziness Cardiovascular: Cardiovascular: Reports no additional cardiovascular complaints, Denies chest pain, Denies lightheadedness, Denies Loss of Consciousness and Denies dyspnea Respiratory: Respiratory: Reports no additional respiratory complaints and Denies dyspnea Gastrointestinal: Gastrointestinal: Reports no additional gastrointestinal complaints, Reports abdominal pain, Denies melena, Denies hematochezia, Denies change in bowel habits, Denies change in stool character, Reports nausea and Reports vomiting Genitourinary: Genitourinary: Denies hematuria, Denies urinary frequency, Denies dysuria, Denies urinary incontinence, Denies urinary hesitancy and Denies urinary urgency Musculoskeletal: Musculoskeletal: Reports no additional musculoskeletal complaints, Denies numbness and Denies tingling Neurologic: Denies dizziness, Denies loss of vision, Denies numbness and Denies tingling Psychiatric: Psychiatric: Reports no additional psychiatric complaints Endocrine: Endocrine: Reports no additional endocrine complaints Hematologic/Lymphatic: Hematologic/Lymphatic: Reports no additional hematologic/lymphatic complaints Allergic/Immunologic: Allergic/Immunologic: Reports no additional allergic/immunologic complaints PMFSH Past Medical History Attestation statement: The following information was validated with the patient. Source: old records reviewed and nursing notes reviewed Medical History ADHD (attention deficit hyperactivity disorder) evaluation Annual physical exam Anxiety control counseling Breakthrough bleeding with IUD Chronic GERD (04/08/21) Chronic pain of right knee (04/10/21) Dense breast Encounter for annual routine gynecological examination Encounter to discuss test results Incomplete bladder emptying IUD surveillance Mastodynia (02/14/13) Tendonitis of knee Urinary incontinence Uterine fibroid Well woman exam Surgical History History of breast surgery History of section History of loop electrical excision procedure (LEEP) Family History Family History Father No problems noted. 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[facility] [place] Sexual orientation: Straight/Heterosexual Gender identity: Female Physical Exam ED Vital Signs: Vital Signs - 24 hr 05/30/23 22:05 05/31/23 04:14 05/31/23 05:50 Temperature 98.5 F 98.4 F 99.4 F Pulse Rate 90 92 95 Respiratory Rate 16 18 18 Blood Pressure 131/86 138/80 145/75 H Pulse Oximetry 98 100 97 Oxygen Delivery Method Room Air Room Air Room Air 05/31/23 07:03 05/31/23 08:00 05/31/23 10:44 Temperature Pulse Rate Respiratory Rate 16 16 16 Blood Pressure Pulse Oximetry Oxygen Delivery Method 05/31/23 10:47 Temperature 98.5 F Pulse Rate 94 Respiratory Rate 16 Blood Pressure 118/64 Pulse Oximetry 96 Oxygen Delivery Method Room Air BMI result Body Mass Index 38.4 Const General: cooperative, no acute distress, alert and awake Nutritional Appearance: well nourished Orientation/consciousness: patient oriented x3 Limitations: no limitations [facility] Head: Yes normal to inspection and Yes atraumatic Ears: hearing grossly normal bilaterally and external ears normal General nose exam: Normal external nose present, no nasal discharge noted and no epistaxis Face and sinus: Yes normal facial exam, No abrasion and No laceration Mouth: Normal oral and palatal mucosa present, no drooling and no muffled voice Eyes General: appearance normal, both eyes and all related structures Periorbital: periorbital findings normal Eyelids: Yes eyelids normal Conjunctivae: conjunctivae normal Pupils: Equal, round and reactive pupils present EOM: EOMs intact bilaterally Neck Neck: Yes normal visual inspection, Yes full ROM and Yes no lymphadenopathy Chest Chest palpation & inspection: normal inspection of the chest Resp Effort & Inspection: normal respiratory effort and able to speak in complete sentences Auscultation: clear to auscultation bilaterally Cardio Rate: regular rate Rhythm: regular rhythm GI Inspection: Yes normal to inspection Palpation (GI): Soft to palpation, not firm, Tenderness to palpation present (GI) (diffusely tender), no guarding and not rigid Neuro General: patient oriented x3 and moves all extremities Cranial nerves: Yes Equal, round and reactive pupils present Cognition (Neuro): normal cognition Motor exam (neuro): 5/5 motor strength present throughout Sensory Exam: Normal double simultaneous stimulation for sensation Coordination: [id number] test normal Extrem General: Yes normal to inspection, Yes full ROM and Yes capillary refill normal Psych Appearance: grossly normal Mental Status: mental status grossly normal Affect: normal affect Attitude: cooperative Thought process: Normal thought process present Thought content: Normal thought content present Insight: Good insight present (Psych) Medications Administered Generic Name Dose Route Start Last Admin Trade Name Freq PRN Reason Stop Dose Admin Hydromorphone HCl 0.5 mg 05/31/23 09:24 05/31/23 10:44 Hydromorphone Hcl 0.5 Mg/0.5 Ml Syringe IVPUSH 0.5 mg Q3H PRN Administration Pain, Severe (Pain Scale 7-10) Protocol Lactated Ringer's 1,000 mls @ 100 mls/hr 05/31/23 09:30 05/31/23 09:47 Lr IVCONT 100 mls/hr .Q10H KENNA Administration Discontinued Medications Generic Name Dose Route Start Last Admin Trade Name Freq PRN Reason Stop Dose Admin Iohexol 100 ml 05/31/23 08:20 05/31/23 08:21 Iohexol 350 Mg/Ml 100 Ml Infus..Btl IV 05/31/23 08:21 85 ml ONCE ONE Administration Morphine Sulfate 4 mg 05/31/23 06:54 05/31/23 07:03 Morphine Sulfate 4 Mg/Ml Cartridge IVPUSH 05/31/23 06:55 4 mg ONCE ONE Administration Protocol Ondansetron HCl 4 mg 05/31/23 06:54 05/31/23 07:01 Ondansetron Hcl 4 Mg/2 Ml Vial IVPUSH 05/31/23 06:55 4 mg ONCE ONE Administration Medical Decision Making Medical Decision Making MDM Narrative: Patient is a 47 year old assigned female at with a history of uterine fibroids and ADHD presenting to the emergency department today with diffuse abdominal pain. Patient's physical exam was as noted in the physical exam portion of this chart. Patient's blood work showed an elevated WBC count of 19.4. The rest of the patient's labs were grossly normal. Patient's urine showed no acute process. Patient's abdomen/pelvis CT showed an acute appendicitis. Patient is not septic (@0920). I spoke with the general surgeon who stated he plans to take the patient to the OR today. I explained my physical exam findings as well as all test results to the patient. I answered all questions asked by the patient. Patient verbalized agreement and understanding with this treatment plan and transfer to the operating room for an appendectomy. Differential Diagnosis Differential Diagnoses: The differential diagnosis associated with the presentation includes Appendicitis Abdominal pain Admission/Observation Consideration of admission/observation: Escalation of care including admission/observation considered Patient to go to OR. Consult Healthcare Provider Management of the patient was discussed with: Marketing Research Coordinator (spoke with the general surgeon as noted in the MDM portion of this note.) Lab Data [facility] Lab Attestation statement: I reviewed the patient's lab results. My interpretation of these results are in the MDM portion of this note. 05/30/23 23:22 05/30/23 23:22 Labs: Lab Results 05/30/23 05/30/23 05/30/23 Range/Units 23:16 23:22 23:22 WBC 19.4 H (4.8-10.8) X10*3/uL RBC 5.18 (4.20-5.50) X10*6/uL Hgb 13.9 (12.0-16.0) g/dl Hct 42.4 (37.0-47.0) % MCV 81.9 (80.0-98.0) fL MCH 26.8 L (27.0-33.0) pg MCHC 32.8 (31.0-35.0) g/dl RDW 13.8 (11.0-16.0) % Plt Count 278 (160-400) X10*3/uL MPV 8.6 L (9.4-12.3) fL Immature Gran % (Auto) 0.4 (0.0-0.4) % Neut % (Auto) 88.8 H (45-73) % Lymph % (Auto) 6.8 L (20-40) % [place] % (Auto) 3.7 (2-11) % Eos % (Auto) 0.0 (0-4) % Baso % (Auto) 0.3 (0-2) % Lymph # (Auto) 1.3 (1.2-4.9) X10*3/uL [place] # (Auto) 0.7 (0.1-1.2) X10*3/uL Eos # (Auto) 0.0 (0.0-0.4) X10*3/uL Baso # (Auto) 0.1 (0.0-0.2) X10*3/uL Abs Immat Gran (auto) 0.08 H (0.00-0.03) X10*3/uL Absolute Neuts (auto) 17.2 H (2.0-8.3) x10*3/uL Absolute Nucleated RBC 0.000 (0.0-0.012) X10*3/uL Nucleated RBC % (auto) 0.0 (0.0-0.2) /100WBC Sodium 135 (135-145) mmol/L Potassium 4.2 (3.3-5.1) mmol/L Chloride 102 (96-108) mmol/L Carbon Dioxide 24 (22-29) mmol/L Anion Gap 13 (12-20) BUN 12 (9-16) mg/dL Creatinine 0.88 (0.5-1.4) mg/dL Estim Creat Clear Calc 103.7 Estimated GFR > 60 Random Glucose 175 H (60-115) mg/dL Lactic Acid (0.5-2.0) mmol/L Calcium 9.6 (8.4-10.2) mg/dL Total Bilirubin 0.4 (0.0-1.0) mg/dL AST 13 (5-31) U/L ALT 13 (0-31) U/L Alkaline Phosphatase 69 (39-117) U/L Total Protein 8.1 H (6.5-8.0) g/dL Albumin 4.1 (3.5-5.0) g/dL Lipase 14 (8-78) U/L Urine Color Dark Yellow Urine Appearance Cloudy Urine pH 5.5 (5.0-9.0) Ur Specific [place] >= 1.030 H (1.005-1.025) Urine Protein 300 (3+) H (Neg-Trace) mg/dL Urine Glucose (UA) Negative (Negative) mg/dL Urine Ketones 15 (Negative) mg/dL Urine Blood Large (3+) H (Negative) Urine Nitrite Negative (Negative) Ur Leukocyte Esterase Trace H (Negative) Urine RBC >20 H (0-2) /HPF Urine WBC 6-10 H (0-5) /HPF Ur Squamous Epith Cells 6-10 (0-2) /HPF Urine Bacteria None Seen (None Seen) Hyaline Casts 0-2 (0-2) /LPF Urine Test (NEGATIVE) 05/30/23 05/31/23 Range/Units Unknown 09:13 WBC (4.8-10.8) X10*3/uL RBC (4.20-5.50) X10*6/uL Hgb (12.0-16.0) g/dl Hct (37.0-47.0) % MCV (80.0-98.0) fL MCH (27.0-33.0) pg MCHC (31.0-35.0) g/dl RDW (11.0-16.0) % Plt Count (160-400) X10*3/uL MPV (9.4-12.3) fL Immature Gran % (Auto) (0.0-0.4) % Neut % (Auto) (45-73) % Lymph % (Auto) (20-40) % [place] % (Auto) (2-11) % Eos % (Auto) (0-4) % Baso % (Auto) (0-2) % Lymph # (Auto) (1.2-4.9) X10*3/uL [place] # (Auto) (0.1-1.2) X10*3/uL Eos # (Auto) (0.0-0.4) X10*3/uL Baso # (Auto) (0.0-0.2) X10*3/uL Abs Immat Gran (auto) (0.00-0.03) X10*3/uL Absolute Neuts (auto) (2.0-8.3) x10*3/uL Absolute Nucleated RBC (0.0-0.012) X10*3/uL Nucleated RBC % (auto) (0.0-0.2) /100WBC Sodium (135-145) mmol/L Potassium (3.3-5.1) mmol/L Chloride (96-108) mmol/L Carbon Dioxide (22-29) mmol/L Anion Gap (12-20) BUN (9-16) mg/dL Creatinine (0.5-1.4) mg/dL Estim Creat Clear Calc Estimated GFR Random Glucose (60-115) mg/dL Lactic Acid 0.8 (0.5-2.0) mmol/L Calcium (8.4-10.2) mg/dL Total Bilirubin (0.0-1.0) mg/dL AST (5-31) U/L ALT (0-31) U/L Alkaline Phosphatase (39-117) U/L Total Protein (6.5-8.0) g/dL Albumin (3.5-5.0) g/dL Lipase (8-78) U/L Urine Color Urine Appearance Urine pH (5.0-9.0) Ur Specific [place] (1.005-1.025) Urine Protein (Neg-Trace) mg/dL Urine Glucose (UA) (Negative) mg/dL Urine Ketones (Negative) mg/dL Urine Blood (Negative) Urine Nitrite (Negative) Ur Leukocyte Esterase (Negative) Urine RBC (0-2) /HPF Urine WBC (0-5) /HPF Ur Squamous Epith Cells (0-2) /HPF Urine Bacteria (None Seen) Hyaline Casts (0-2) /LPF Urine Test NEGATIVE (NEGATIVE) Independent Interpretation I performed an independent interpretation of an: CT Scan Interpretation: My interpretation is in agreement with the radiologist's impression of these imaging studies. EXAMINATION: CT ABDOMEN AND PELVIS WITH CONTRAST? CLINICAL INFORMATION: Abdominal pain? COMPARISON: None available. TECHNIQUE: Multidetector volumetric images were obtained from the superior aspect of the liver through the pubic symphysis following administration 85 mL of Omnipaque 350 intravenous contrast. Sagittal and coronal reformatted images were obtained on the technologist's workstation.? Oral contrast: No This CT examination was performed using dose optimization techniques as appropriate, variously including the following: *Automated exposure control *Adjustment of mA and/or kV according to patient size (this includes techniques or standardized protocols for targeted exams where dose is matched to indication/reason for exam; i.e. extremities or head) *Use of iterative reconstruction technique DLP: 875 mGy-cm FINDINGS: LUNG BASES: The visualized lung bases are unremarkable.? LIVER, GALLBLADDER, AND BILIARY TREE: The liver is normal in size, shape, and attenuation. No focal hepatic lesion or biliary ductal dilatation is present. The gallbladder is unremarkable with no evidence of radiopaque gallstones, gallbladder wall thickening, or obvious pericholecystic inflammatory changes.? PANCREAS: Unremarkable.? SPLEEN: Unremarkable.? ADRENAL GLANDS: Unremarkable.? KIDNEYS AND URETERS: The kidneys are normal in size, shape, and attenuation. No hydronephrosis, hydroureter, or calculi seen. No perinephric stranding. ? BLADDER: Unremarkable.? GASTROINTESTINAL TRACT: The appendix is thick walled, dilated and opacified, measuring 20 mm in diameter with irregular wall thickening up to 7 mm. Periappendiceal infiltration and fluid are evident, though no drainable collection is detected. There is not an appendicolith. Small nodes are evident in the right lower quadrant mesentery, the largest measuring 5 mm in short axis. The remainder of the colon and the small bowel are otherwise unremarkable, as is the stomach.? ABDOMINAL WALL: No significant hernia is appreciated.? LYMPH NODES: Normal. VASCULAR: Unremarkable. PELVIC VISCERA: There is a 6.5 x 6 cm mass in the right side of the uterine fundus, deviating the endometrium to the left, most likely a leiomyoma, not significantly changed from pelvic MRI of 11/08/2022.? OSSEOUS STRUCTURES: Unremarkable.? CT/CT abdomen pelvis w IV con IMPRESSION: ? 1. Acute appendicitis. ? 2. Uterine fundal mass likely a leiomyoma, unchanged since pelvic MRI of 11/08/2022.? ? 3. Findings were reported by phone to Kelsey Jason in the [facility] emergency department on 05/31/2023 at 9:00 AM. ? Fleischner guidelines were followed. Dictated By: Alpesh Baptiste MD Signed By: Electronically signed by Alpesh Baptiste MD 05/31/23 0904 EXAMINATION: XR ABDOMEN KUB CLINICAL INDICATION: Constipation abdominal pain.? COMPARISON: None available.? TECHNIQUE: AP view of the abdomen. FINDINGS: There is scattered stool and gas in the colon without any distention. There is no organomegaly. No radiopaque calculi. No bony abnormality. XR/XR KUB IMPRESSION: Unremarkable abdomen exam. Dictated By: Vern Juarez MD Signed By: Electronically signed by Vern Juarez MD 05/30/23 7636 Radiology Impression Discussion of test interpretation with radiology: I have reviewed the radiologist's reading. Critical Care Time Critical Care Time Critical Care Time: Yes Total Critical Care Time: 45 Attestation: I spent 45 minutes of Critical Care Time with this patient. This does not include time spent on separately reported billable procedures. Discharge Plan Discharge Clinical Impression: Acute appendicitis Patient Disposition: Xfer Other Transfer Details: To surgery with Dr. Flood
[2023-05-31] MEDS: ondansetron HCL 4 MG/2 ML VIAL IVPUSH ×2 (07:01→15:27)
[2023-05-31] MEDS: Morphine Sulfate 4 MG/ML CARTRIDGE IVPUSH (07:03)
[2023-05-31] MEDS: iohexoL 350 MG/ML 100 ML INFUS..BTL IV (08:21)
--- NOTE | 2023-05-31 09:27 | P.HPGS_ITS ---
History of Present Illness History of Present Illness Date of Service: 05/31/23 Chief complaint: Abd pain Narrative: Lidia Rivera is a 47 year old female presenting with complaints of abdominal pain in the right lower quadrant. The pain began in the periumbilical location yesterday but then radiated to the right lower quadrant. The pain was associated with nausea and vomiting. She also reports pain with walking or coughing. She denies a previous history of similar pain. She subsequently presented to the emergency department and was noted to have an elevated WBC. CT abdomen and pelvis was significant for a dilated and thickened appendix with surrounding inflammation. Findings are suggestive of acute appendicitis without perforation. Review of Systems Review of Systems: Yes all other systems are reviewed and are negative Constitutional: Constitutional: Reports chills, Reports fever(s), Denies headache(s), Reports poor appetite and Denies weakness ENT: Denies headache(s) Cardiovascular: Cardiovascular: Denies chest pain, Denies irregular heart rhythm, Denies palpitations and Denies dyspnea Respiratory: Respiratory: Denies cough, Denies excessive phlegm production and Denies dyspnea Gastrointestinal: Gastrointestinal: Reports abdominal pain, Denies bloating, Denies change in bowel habits, Denies constipation, Denies heartburn, Denies diarrhea, Reports nausea and Reports vomiting Genitourinary: Genitourinary: Denies urinary frequency Musculoskeletal: Musculoskeletal: Denies back pain, Denies muscle weakness and Denies numbness Integumentary/Breasts: Skin/Breast: Denies changing lesions and Denies unusual bruising Neurologic: Denies headache(s), Denies numbness, Denies paresthesias and Denies weakness Psychiatric: Psychiatric: Denies anxiety and Denies depression Endocrine: Endocrine: Denies palpitations Hematologic/Lymphatic: Hematologic/Lymphatic: Denies lymphadenopathy PMF Past Medical History Medical History ADHD (attention deficit hyperactivity disorder) evaluation Annual physical exam Anxiety control counseling Breakthrough bleeding with IUD Chronic GERD (04/08/21) Chronic pain of right knee (04/10/21) Dense breast Encounter for annual routine gynecological examination Encounter to discuss test results Incomplete bladder emptying IUD surveillance Mastodynia (02/14/13) Tendonitis of knee Urinary incontinence Uterine fibroid Well woman exam Family History Family History Father No problems noted. Mother CVD (cardiovascular disease) Maternal Grandmother Diabetes Hypertension Maternal Grandfather CVD (cardiovascular disease) Sister Borderline high blood pressure Surgical History Surgical History History of breast surgery History of section History of loop electrical excision procedure (LEEP) Social History Social History Alcohol intake: unknown Patient Tobacco Use Status: Former Tobacco user Smoked in Last 30 Days: No Use of substances other than those prescribed or required for medical reasons: No Advance Directives: No Advance Directives Information Provided: No Patient : No Current occupational status: employed 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[facility] [place] Sexual orientation: Straight/Heterosexual Gender identity: Female Meds Allergies Allergy/AdvReac Type Severity Reaction Status Date / Time No Known Allergies Allergy Verified 05/31/23 07:35 [No Known Allergies*] Home Medications Medication Instructions Recorded Confirmed Last Taken Type omeprazole magnesium 20 mg 20 mg PO DAILY 08/11/20 08/11/20 Unknown History tablet,delayed release vitamin B complex-vitamin C-folic 1 tab PO DAILY 03/16/22 Unknown History acid 5 mg tablet glucosamine-chondroitin 250 mg-200 2 tab PO TID 04/13/22 Unknown History mg tablet (Osteo Bi-Flex) magnesium 200 mg tablet 200 mg PO DAILY 04/13/22 Unknown History Physical Exam Vital Signs: Vital Signs: Last Vital Signs Temp 99.4 F 05/31/23 05:50 Pulse 95 05/31/23 05:50 Resp 16 05/31/23 08:00 BP 145/75 H 05/31/23 05:50 Pulse Ox 97 05/31/23 05:50 O2 Del Method Room Air 05/31/23 05:50 BMI result Body Mass Index 38.4 Const: General: cooperative, ill appearing and tired appearing Nutritional Appearance: well nourished Orientation/consciousness: patient oriented x3 Limitations: no limitations HEENT: Head: Yes normocephalic and Yes atraumatic Ears: hearing grossly normal bilaterally Resp: Effort & Inspection: normal respiratory effort, no audible wheezes, no cough and no respiratory distress Cardio: Jugular venous distension: no JVD GI: Inspection: Yes normal to inspection Palpation (GI): Soft to palpation, Tenderness to palpation present (GI) in the RLQ, at McBurney's point, with rebound tenderness and Rovsing's sign positive and Guarding due to palpation present (GI) Skin: Other: Warm, dry, no rash Neuro: General: patient oriented x3 Extrem: General: Yes no clubbing, cyanosis or edema Results Results Labs: Short CBC 05/30/23 Range/Units 23:22 WBC 19.4 H (4.8-10.8) X10*3/uL Hgb 13.9 (12.0-16.0) g/dl Hct 42.4 (37.0-47.0) % Plt Count 278 (160-400) X10*3/uL BMP 05/30/23 23:22 Sodium 135 Potassium 4.2 Chloride 102 Carbon Dioxide 24 BUN 12 Creatinine 0.88 Calcium 9.6 Liver Function 05/30/23 Range/Units 23:22 Total Bilirubin 0.4 (0.0-1.0) mg/dL AST 13 (5-31) U/L ALT 13 (0-31) U/L Alkaline Phosphatase 69 (39-117) U/L Albumin 4.1 (3.5-5.0) g/dL Urine 05/30/23 Range/Units 23:16 Urine Color Dark Yellow Urine Appearance Cloudy Urine pH 5.5 (5.0-9.0) Ur Specific [place] >= 1.030 H (1.005-1.025) Urine Protein 300 (3+) H (Neg-Trace) mg/dL Urine Glucose (UA) Negative (Negative) mg/dL Assessment and Plan (1) Acute appendicitis: Status: Acute Plan 47-year-old female patient presenting with complaints of right lower quadrant abdominal pain found to be tender in the right lower quadrant with localized rebound. Laboratories revealed an elevated WBC and CT confirmed acute appendicitis. I recommended a laparoscopic or possible open appendectomy. After discussion of the procedure, risks, and alternatives, she consents to the surgery. She is been added onto the operative schedule for today. Time Spent With Patient Time: Total time managing care of this patient today ____ minutes. Quality Stroke Does the patient have a stroke diagnosis?: No VTE Prior VTE?: No VTE Risk Level:: Surgical - moderate VTE Device Contraindication: N/A - Device Ordered VTE Drug Contraindication: Treatment Not Indicated Procedures Date of Service Date of Service: 05/31/23
[2023-05-31 09:33] LABS: Lactic Acid 0.8 mmol/L (0.5-2.0)
[2023-05-31] MEDS: Lactated Ringers 1,000 ML 100 ML IVCONT ×2 (09:47→12:46)
[2023-05-31 09:50] LABS: UPreg QC Valid YES; Urine Pregnancy NEGATIVE (NEGATIVE)
[2023-05-31] MEDS: HYDROmorphone HCl 0.5 MG/0.5 ML SYRINGE IVPUSH ×2 (10:44→19:54)
--- NOTE | 2023-05-31 12:25 | P.CONAN_ITS ---
HPI - Anesthesia Eval Consult details Narrative: 47 yo female patient for Laparoscopic appendectomy PMFSH Active Problems Active Problems: All Active Problems (Updated 05/31/23 @ 12:22 by Yi Uribe MD) Acute appendicitis (Acute) Mastodynia (Acute 02/14/13) Chronic pain of right knee (Acute 04/10/21) Chronic GERD (Acute 04/08/21) Dense breast (Acute) Complex ovarian cyst (Acute) Uterine myoma (Acute) Uterine fibroid (Acute) Simple ovarian cyst (Acute) ADHD (attention deficit hyperactivity disorder) evaluation (Acute) Anxiety (Acute) Increased BMI Snores but never tested for TETO Past Medical History Medical History ADHD (attention deficit hyperactivity disorder) evaluation Annual physical exam Anxiety control counseling Breakthrough bleeding with IUD Chronic GERD (04/08/21) Chronic pain of right knee (04/10/21) Dense breast Encounter for annual routine gynecological examination Encounter to discuss test results Incomplete bladder emptying IUD surveillance Mastodynia (02/14/13) Tendonitis of knee Urinary incontinence Uterine fibroid Well woman exam Family History Family History Father No problems noted. 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[employer] [place] Sexual orientation: Straight/Heterosexual Gender identity: Female Meds Allergies Allergy/AdvReac Type Severity Reaction Status Date / Time No Known Allergies Allergy Verified 05/31/23 12:48 [No Known Allergies*] Active Medications: Current Medications Hydromorphone HCl (Hydromorphone Hcl 0.5 Mg/0.5 Ml Syringe) 0.5 mg IVPUSH Q3H PRN; Protocol PRN Reason: Pain, Severe (Pain Scale 7-10) Last Admin: 05/31/23 10:44 Dose: 0.5 mg Lactated Ringer's (Lr) 1,000 mls @ 100 mls/hr IVCONT .Q10H [facility] Last Admin: 05/31/23 09:47 Dose: 100 mls/hr Ondansetron HCl (Ondansetron Hcl 4 Mg/2 Ml Vial) 4 mg IVPUSH QID PRN PRN Reason: Nausea Home Medications Medication Instructions Recorded Confirmed Last Taken Type omeprazole magnesium 20 mg 20 mg PO DAILY 08/11/20 05/31/23 Unknown History tablet,delayed release vitamin B complex-vitamin C-folic 1 tab PO DAILY 03/16/22 05/31/23 Unknown History acid 5 mg tablet glucosamine-chondroitin 250 mg-200 2 tab PO TID 04/13/22 05/31/23 Unknown History mg tablet (Osteo Bi-Flex) magnesium 200 mg tablet 200 mg PO DAILY 04/13/22 05/31/23 Unknown History Exam Exam Date and Time: May 31, 2023 1225 Height,Weight and Vital Signs: Height 5 ft 7 in Weight 111.13 kg Last Vital Signs Temp 98.5 F 05/31/23 10:47 Pulse 94 05/31/23 10:47 Resp 16 05/31/23 10:47 BP 118/64 05/31/23 10:47 Pulse Ox 96 05/31/23 10:47 O2 Del Method Room Air 05/31/23 10:47 Vital Signs Temp Pulse Resp BP Pulse Ox O2 Del Method 05/31/23 12:45 140/86 H 05/31/23 12:40 98.1 F 92 18 127/108 H 97 Room Air 05/31/23 10:47 98.5 F 94 16 118/64 96 Room Air 05/31/23 10:44 16 05/31/23 08:00 16 05/31/23 07:03 16 05/31/23 05:50 99.4 F 95 18 145/75 H 97 Room Air 05/31/23 04:14 98.4 F 92 18 138/80 100 Room Air 05/30/23 22:05 98.5 F 90 16 131/86 98 Room Air Pertinent Lab Results Pertinent Lab Results: Laboratory Tests 05/30/23 05/30/23 05/30/23 23:16 23:22 23:22 WBC 19.4 H RBC 5.18 Hgb 13.9 Hct 42.4 MCV 81.9 MCH 26.8 L MCHC 32.8 RDW 13.8 Plt Count 278 MPV 8.6 L Immature Gran % (Auto) 0.4 Neut % (Auto) 88.8 H Lymph % (Auto) 6.8 L [place] % (Auto) 3.7 Eos % (Auto) 0.0 Baso % (Auto) 0.3 Lymph # (Auto) 1.3 [place] # (Auto) 0.7 Eos # (Auto) 0.0 Baso # (Auto) 0.1 Abs Immat Gran (auto) 0.08 H Absolute Neuts (auto) 17.2 H Absolute Nucleated RBC 0.000 Nucleated RBC % (auto) 0.0 Sodium 135 Potassium 4.2 Chloride 102 Carbon Dioxide 24 Anion Gap 13 BUN 12 Creatinine 0.88 Estim Creat Clear Calc 103.7 Estimated GFR > 60 Random Glucose 175 H Lactic Acid Calcium 9.6 Total Bilirubin 0.4 AST 13 ALT 13 Alkaline Phosphatase 69 Total Protein 8.1 H Albumin 4.1 Lipase 14 Urine Color Dark Yellow Urine Appearance Cloudy Urine pH 5.5 Ur Specific [place] >= 1.030 H Urine Protein 300 (3+) H Urine Glucose (UA) Negative Urine Ketones 15 Urine Blood Large (3+) H Urine Nitrite Negative Ur Leukocyte Esterase Trace H Urine RBC >20 H Urine WBC 6-10 H Ur Squamous Epith Cells 6-10 Urine Bacteria None Seen Hyaline Casts 0-2 Urine Test 05/30/23 05/31/23 Unknown 09:13 WBC RBC Hgb Hct MCV MCH MCHC RDW Plt Count MPV Immature Gran % (Auto) Neut % (Auto) Lymph % (Auto) [place] % (Auto) Eos % (Auto) Baso % (Auto) Lymph # (Auto) [place] # (Auto) Eos # (Auto) Baso # (Auto) Abs Immat Gran (auto) Absolute Neuts (auto) Absolute Nucleated RBC Nucleated RBC % (auto) Sodium Potassium Chloride Carbon Dioxide Anion Gap BUN Creatinine Estim Creat Clear Calc Estimated GFR Random Glucose Lactic Acid 0.8 Calcium Total Bilirubin AST ALT Alkaline Phosphatase Total Protein Albumin Lipase Urine Color Urine Appearance Urine pH Ur Specific [place] Urine Protein Urine Glucose (UA) Urine Ketones Urine Blood Urine Nitrite Ur Leukocyte Esterase Urine RBC Urine WBC Ur Squamous Epith Cells Urine Bacteria Hyaline Casts Urine Test NEGATIVE Airway Mallampati Class: III TM Dist: >3cm Neck ROM: Full Loose/Missing/Broken Teeth: Yes (Missing 1 molar each top right and left. Denies broken, loose, missing teeth) Heart: RRR Lungs: CTAB Assessment and Plan Assessment Anesthesia Assessment: Anesthesia Plan Discussed and Chart Reviewed Final Anesthetic Review Family History of Problems with Anesthesia: No History of Problems with Anesthesia: No NPO: Yes ASA Class: III and Emergency Final Preanesthetic Review: No Changes in Pt Med Stat, Meds/Allgs Chart Reviewed, Consent Obtained/Reviewed and Anes Risks/Benef Reviewed Patient Risk: Intermediate Procedure Risk: Intermediate Assessment/Block/Sedation in SS: Assess/Block/Sedation-SS Anesthetic Plan Anesthetic Plan: GA Disposition: Standard PACU
--- NOTE | 2023-05-31 12:42 | PC.NURSE ---
IV placed in ER. patent.
--- NOTE | 2023-05-31 14:16 | MHC.CM.PN ---
CM ATTEMPTED TO SEE PT, PT NOT YET ON UNIT CM TO REVISIT
--- NOTE | 2023-05-31 14:51 | P.OP_ITS ---
Operative Note Operative Note Date of Service: 05/31/23 Narrative: Preoperative diagnosis: Acute appendicitis Postoperative diagnosis: Same, retrocecal Procedure: Laparoscopic appendectomy Surgeon: Serjio Flood MD Laboratory Assistant: Sylvie Greer PA-C Anesthesia: General endotracheal Indications for procedure: 47-year-old female patient presenting with complaints of abdominal pain in the right lower quadrant of 24 hours duration found to have an elevated WBC and CT suggestive of acute appendicitis without perforation. Operative findings: Patient was found to have a retrocecal appendix with the cecal mesentery densely adherent to the appendix with surrounding phlegmon and purulent discharge. Specimen: Appendix Estimated blood loss: 20 mL Complications: None Procedure details: Patient was brought to the OR placed in a supine position. After administering general anesthesia patient's abdomen was prepped with ChloraPrep and draped in a sterile fashion. A surgical time-out was called the consent confirmed. Patient received preoperative antibiotics and Venodyne boots were in place. Local anesthesia was infiltrated in a periumbilical region. Incision was then made with a scalpel carried out through subcutaneous tissue. Veress needle was then inserted while elevating the abdominal cavity with towel clips. After positive drop test the abdomen plantar pressure 15 male. There is moved in the 5 mm trocar inserted. The camera was then inserted in the abdomen explored. A 2nd 5 mm trocar was placed in the lower midline. There is a adhesions noted in the lower midline from the patient's previous C-sections. Trocar was placed just out the adhesions. A 12 mm trocar was then placed in the left lower quadrant. The patient was then placed in reverse Trendelenburg position and rotated to the left. Cecum was identified and terminal ileum also identified. The terminal ileum persisted in the right lower quadrant and was unable to be completely removed from this location. The cecum was then mobilized along the lateral peritoneal attachment. A 3rd 5 mm trocar was then placed in the right lower quadrant to assist in the dissection. The appendix was found to be densely adherent in a retrocecal location. With mobilization of the cecum portion of the appendix was I will to be identified. There was a large phlegmon associated with the appendix. Careful dissection using the LigaSure was then used to free the appendix from the surrounding phlegmon. This was then dissected to the receive cool stump. Once the cecal base was clearly identified a Endo-VIRAL stapler was then used to staple and divide the appendix at its base. The appendix was then placed in Endo-Catch bag and brought up to the left lower quadrant incision. The appendix was opened off the sterile field to confirm the appendix in specimen. Wounds were then irrigated with saline solution and suctioned dry. No bleeding could be identified from the staple line. CO2 was then evacuated. Fascia was closed at the left lower quadrant incision using a [id number] 0 Polysorb suture. The remaining trocars were then closed using a subcuticular 4-0 Polysorb suture. Steri-Strips, 2 x 2 gauze and Tegaderm were then applied. The patient tolerated the procedure well. Sponge, instrument, needle counts reported as correct. The patient was transferred to PACU in stable condition.
--- NOTE | 2023-05-31 16:41 | PHA.MEDREC ---
Pharmacy Consult ? Medication Reconciliation Pharmacy has reviewed the medication reconciliation completed by nursing.
[2023-06-01] VITALS: BP 112/60; PULSE 98; RESP 18; TEMP 36.4; O2SAT 95
[2023-06-01] MEDS: HYDROmorphone HCl 0.5 MG/0.5 ML SYRINGE IVPUSH (02:34)
[2023-06-01] MEDS: Lactated Ringers 1,000 ML 100 ML IVCONT ×2 (02:35→14:55)
[2023-06-01] MEDS: Multivitamin TABLET 1 TAB PO (07:46)
[2023-06-01] MEDS: Magnesium Oxide 400 MG TABLET 200 MG PO (07:46)
[2023-06-01] MEDS: Omeprazole 20 MG CAPSULE.DR PO (07:46)
[2023-06-01 07:53] VITALS: BP 141/76; PULSE 97; RESP 18; TEMP 36.1; O2SAT 96
--- NOTE | 2023-06-01 08:10 | PM.PNGS ---
Subjective Subjective Date of Service: 06/01/23 Interval history: Patient reports gas and incisional pain but generally feels improved. Physical Exam Vital Signs: Vital Signs: Last Vital Signs Temp 97.0 F 06/01/23 07:53 Pulse 97 06/01/23 07:53 Resp 18 06/01/23 07:53 BP 141/76 H 06/01/23 07:53 Pulse Ox 96 06/01/23 07:53 O2 Del Method Room Air 06/01/23 07:53 O2 Flow Rate 2 05/31/23 16:34 BMI result Body Mass Index 38.4 Const: General: comfortable and no acute distress Nutritional Appearance: well nourished Orientation/consciousness: patient oriented x3 Limitations: no limitations Resp: Effort & Inspection: normal respiratory effort, no audible wheezes, no cough and no respiratory distress GI: Other: trocar incisions are clean, dry and intact without redness or discharge. Skin: Other: warm, dry and no rash Neuro: General: patient oriented x3 Extrem: Other: no edema Objective Data Active Medications Acetaminophen (Acetaminophen 325 Mg Tablet) 650 mg PO Q6H PRN PRN Reason: Pain, Mild (Pain Scale 1-3) Hydromorphone HCl (Hydromorphone Hcl 0.5 Mg/0.5 Ml Syringe) 0.5 mg IVPUSH Q3H PRN; Protocol PRN Reason: Pain, Severe (Pain Scale 7-10) Last Admin: 06/01/23 02:34 Dose: 0.5 mg Documented By: TOSHA Lactated Ringer's (Lr) 1,000 mls @ 100 mls/hr IVCONT .Q10H [facility] Last Admin: 06/01/23 02:35 Dose: 100 mls/hr Documented By: TOSHA Ketorolac Tromethamine (Ketorolac Tromethamine 30 Mg/Ml Vial) 30 mg IVPUSH Q6H PRN PRN Reason: Pain, Mild (Pain Scale 1-3) Magnesium Oxide (Magnesium Oxide 400 Mg Tablet) 200 mg PO DAILY [facility] Last Admin: 06/01/23 07:46 Dose: 200 mg Documented By: COLTEN Morphine Sulfate (Morphine Sulfate 4 Mg/Ml Cartridge) 4 mg IVPUSH Q4H PRN; Protocol PRN Reason: Pain, Severe (Pain Scale 7-10) Multivitamins/Vitamin C (Multivitamin Tablet) 1 tab PO DAILY [facility] Last Admin: 06/01/23 07:46 Dose: 1 tab Documented By: COLTEN Omeprazole (Omeprazole 20 Mg Capsule.Dr) 20 mg PO DAILY@0630 [facility] Last Admin: 06/01/23 07:46 Dose: 20 mg Documented By: COLTEN Ondansetron HCl (Ondansetron Hcl 4 Mg/2 Ml Vial) 4 mg IVPUSH QID PRN PRN Reason: Nausea Last Admin: 05/31/23 15:27 Dose: 4 mg Documented By: TOYA Oxycodone HCl (Oxycodone Hcl Immed Release 5 Mg Tablet) 5 mg PO Q4H PRN PRN Reason: Pain, Moderate(Pain Scale 4-6) Labs 05/30/23 23:22 05/30/23 23:22 Labs: Laboratory Results - last 24 hr 05/30/23 05/31/23 Unknown 09:13 Lactic Acid 0.8 Urine Test NEGATIVE Procedures Date of Service Date of Service: 06/01/23 Progress Note: A&P Assessment and plan (1) Acute appendicitis: Status: Acute Plan POD #1 s/p laparoscopic appendectomy. She is reasonably comfortable but has not eating much yet. She may be ready for discharge later today if tolerating a regular diet. Time Spent With Patient Time: Total time managing care of this patient today ____ minutes. Quality Stroke Does the patient have a stroke diagnosis?: No VTE Prior VTE?: No VTE Risk Level:: Surgical - moderate VTE Device Contraindication: N/A - Device Ordered VTE Drug Contraindication: Treatment Not Indicated
[2023-06-01] MEDS: oxyCODONE HCl Immed Release 5 MG TABLET PO ×2 (10:36→16:13)
--- NOTE | 2023-06-01 12:47 | MHC.CM.PN ---
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
--- NOTE | 2023-06-01 14:43 | HO.POSTANES ---
Post Anesthesia Evaluation Post Anesthesia Evaluation Date of Service: 05/31/23 Vital Signs: Vital Signs Temp Pulse Resp BP Pulse Ox O2 Del Method 06/01/23 07:53 97.0 F 97 18 141/76 H 96 Room Air Anesthesia: General Endotracheal-GETA Mental Status: Awake Pain Control: Satisfactory Nausea/Vomiting: None Hydration: Adequate Anesthesia-Related Issues: No Anes. Related Issues
[2023-06-01 15:45] VITALS: BP 155/68; PULSE 98; RESP 18; TEMP 36.8; O2SAT 93
[2023-06-02] VITALS: BP 137/78; PULSE 95; RESP 16; TEMP 36.3; O2SAT 99
[2023-06-02] MEDS: Lactated Ringers 1,000 ML 100 ML IVCONT (00:36)
[2023-06-02] MEDS: Acetaminophen 325 MG TABLET 650 MG PO (02:31)
[2023-06-02] MEDS: Omeprazole 20 MG CAPSULE.DR PO (06:08)
[2023-06-02] MEDS: oxyCODONE HCl Immed Release 5 MG TABLET PO (06:13)
[2023-06-02 07:49] VITALS: BP 119/75; PULSE 79; RESP 16; TEMP 36.1; O2SAT 97
[2023-06-02] MEDS: Multivitamin TABLET 1 TAB PO (09:54)
[2023-06-02] MEDS: Magnesium Oxide 400 MG TABLET 200 MG PO (09:54)
--- NOTE | 2023-06-02 10:37 | P.PNGS_ITS ---
Subjective Subjective Date of Service: 06/02/23 Patient reports: feels better and still having pain Interval history: The patient is seen in coverage for Dr. Flood Patient reports that overall, she is feeling better but still having periods of significant pain. She expressed concerns about how severe the pain is and that the current pain medication regime does not address it. She otherwise denies difficulty breathing or shortness of breath. She has no nausea or vomit Physical Exam Vital Signs: Vital Signs: Last Vital Signs Temp 96.9 F 06/02/23 07:49 Pulse 79 06/02/23 07:49 Resp 16 06/02/23 07:49 BP 119/75 06/02/23 07:49 Pulse Ox 97 06/02/23 07:49 O2 Del Method Room Air 06/02/23 07:49 O2 Flow Rate 2 05/31/23 16:34 BMI result Body Mass Index 38.4 On exam, she is nontoxic and anicteric She has no respiratory distress Her abdomen is obese and soft with no peritoneal sign. Dressings are clean and intact Objective Data Active Medications Acetaminophen (Acetaminophen 325 Mg Tablet) 650 mg PO Q6H PRN PRN Reason: Pain, Mild (Pain Scale 1-3) Last Admin: 06/02/23 02:31 Dose: 650 mg Documented By: ANGELICA Hydromorphone HCl (Hydromorphone Hcl 0.5 Mg/0.5 Ml Syringe) 0.5 mg IVPUSH Q3H PRN; Protocol PRN Reason: Pain, Severe (Pain Scale 7-10) Last Admin: 06/01/23 02:34 Dose: 0.5 mg Documented By: TOSHA Lactated Ringer's (Lr) 1,000 mls @ 100 mls/hr IVCONT .Q10H [facility] Last Infusion: 06/02/23 10:18 Dose: 0 mls/hr Documented By: JANUARY Ketorolac Tromethamine (Ketorolac Tromethamine 30 Mg/Ml Vial) 30 mg IVPUSH Q6H PRN PRN Reason: Pain, Mild (Pain Scale 1-3) Magnesium Oxide (Magnesium Oxide 400 Mg Tablet) 200 mg PO DAILY [facility] Last Admin: 06/02/23 09:54 Dose: 200 mg Documented By: JANUARY Morphine Sulfate (Morphine Sulfate 4 Mg/Ml Cartridge) 4 mg IVPUSH Q4H PRN; Protocol PRN Reason: Pain, Severe (Pain Scale 7-10) Multivitamins/Vitamin C (Multivitamin Tablet) 1 tab PO DAILY [facility] Last Admin: 06/02/23 09:54 Dose: 1 tab Documented By: JANUARY Omeprazole (Omeprazole 20 Mg Capsule.Dr) 20 mg PO DAILY@0630 [facility] Last Admin: 06/02/23 06:08 Dose: 20 mg Documented By: ANGELICA Ondansetron HCl (Ondansetron Hcl 4 Mg/2 Ml Vial) 4 mg IVPUSH QID PRN PRN Reason: Nausea Last Admin: 05/31/23 15:27 Dose: 4 mg Documented By: TOYA Oxycodone HCl (Oxycodone Hcl Immed Release 5 Mg Tablet) 5 mg PO Q4H PRN PRN Reason: Pain, Moderate(Pain Scale 4-6) Last Admin: 06/02/23 06:13 Dose: 5 mg Documented By: ANGELICA Labs 05/30/23 23:22 05/30/23 23:22 Microbiology Microbiology Results: Microbiology 05/30/23 Unknown Urine Culture - Final Urine clean catch - Clean Catch Midstream No growth. 05/31/23 09:13 Blood Culture - Preliminary Blood - Venous No growth after 24 hours. 05/31/23 09:13 Blood Culture - Preliminary Blood - Venous No growth after 24 hours. Procedures Date of Service Date of Service: 06/02/23 Progress Note: A&P Assessment and plan (1) Acute appendicitis: Status: Acute (2) Anxiety: Status: Acute (3) ADHD (attention deficit hyperactivity disorder) evaluation: Status: Acute Plan Patient stated she would be more comfortable monitoring the severe pain that she is experiencing in being re-evaluated tomorrow. Continue present management and will reassess for discharge tomorrow. Time Spent With Patient Time: Total time managing care of this patient today ____ minutes. Quality Stroke Does the patient have a stroke diagnosis?: No VTE Prior VTE?: No VTE Risk Level:: Surgical - moderate VTE Device Contraindication: N/A - Device Ordered VTE Drug Contraindication: Treatment Not Indicated
== END 2023-06-02 13:12 | disposition home or self-care (01) ==
LOC: HO.ED 05-31 09:25 → HO.SSS 05-31 09:27 → HO.S3 05-31 12:30
PROVIDERS: Physician Assistant Medical; Emergency Provider Emergency Medicine; Visit Provider Surgery
PROC: 0DTJ4ZZ Resection of Appendix, Percutaneous Endoscopic Approach (ICD-10-PCS; CPT 44970; principal; 2023-05-31 13:30)
DX: K35.33 Acute appendicitis with perforation, localized peritonitis, and gangrene, with abscess (principal); K66.0 Peritoneal adhesions (postprocedural) (postinfection); F41.9 Anxiety disorder, unspecified; F90.2 Attention-deficit hyperactivity disorder, combined type; K21.9 Gastro-esophageal reflux disease without esophagitis; D25.9 Leiomyoma of uterus, unspecified; Z97.5 Presence of (intrauterine) contraceptive device; Z79.899 Other long term (current) drug therapy; Z87.891 Personal history of nicotine dependence
CPT/HCPCS: 44970; 36415; 74018; 74177; 80053; 81001; 81025; 83605; 83690; 85025; 87040; 87086; 88304; 96374; 96375; 99285; J0330; J1100; J1170; J2250; J2270; J2405; J2550; J2765; J2795; J3010; Q9967

== ENCOUNTER → 2023-05-31 09:24 | Outpatient (BNV) | payer OTHER, SELFPAY | PROVIDERS: Emergency Provider Emergency Medicine; Visit Provider Surgery | DX: K35.80 Unspecified acute appendicitis (principal); F41.9 Anxiety disorder, unspecified; Z13.39 Encounter for screening examination for other mental health and behavioral disorders | CPT/HCPCS: 44970; 99024; 99222 ==

== ENCOUNTER 2023-06-08 10:42 | Outpatient (AMB) | payer OTHER, SELFPAY ==
--- NOTE | 2023-06-08 10:54 | A.OFFVIS_ITS ---
Intake Vital Signs 06/08/23 11:05 Height 5 ft 7 in Weight 236 lb 2 oz BMI 37.0 BP 130/90 H Blood Pressure Location Lt brachial Position Sitting Pulse 101 H Intake Visit Reasons: s/p laparoscopic appendectomy Intake Note: Patient is seen in office for post op assessment post laparoscopic appendectomy. Patient c/o: admits to sore and tender in the area, denies any other concerns Gas Flow Regulator Required: No Accompanied by: Self / Same As Patient Allergies No Known Allergies [No Known Allergies*] Allergy (Verified 06/08/23 11:05) Medication List - Last Reconciled 06/08/23 by Serjio Flood MD B complex-vitamin C-folic acid 5 mg 1 tab PO DAILY glucosamine-chondroitin 250-200 mg (Osteo Bi-Flex) 2 tabs PO TID magnesium 200 mg PO DAILY norethindrone (contraceptive) ([place]) 0.35 mg PO DAILY omeprazole magnesium 20 mg PO DAILY HPI HPI Comments History of Present Illness Details Patient returns 1 week following laparoscopic appendectomy. She tolerated the procedure well and feels much improved today. She is eating well without nausea or vomiting. Denies any significant incisional or abdominal pain. She denies fever, chills, nausea or vomiting. [facility] Medical History ADHD (attention deficit hyperactivity disorder) evaluation Annual physical exam Anxiety control counseling Breakthrough bleeding with IUD Chronic GERD (04/08/21) Chronic pain of right knee (04/10/21) Dense breast Encounter for annual routine gynecological examination Encounter to discuss test results Incomplete bladder emptying IUD surveillance Mastodynia (02/14/13) Tendonitis of knee Urinary incontinence Uterine fibroid Well woman exam Surgical History History of breast surgery History of section History of laparoscopic appendectomy (05/31/23) History of loop electrical excision procedure (LEEP) Family History Father No problems noted. 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 Neuro General: patient oriented x3 Extrem Other: No cyanosis, clubbing or edema. Assessment & Plan Assessment & Plan (1) Acute appendicitis: Code(s): K35.80 - Unspecified acute appendicitis Plan Patient returns 1 week following laparoscopic appendectomy on 05/31/2023. She tolerated the procedure well and her wounds are healing nicely. She should continue to avoid lifting greater than 10 lb for another week. She should follow up as needed. Coding Level of Care Code Global (64165) Diagnoses Acute appendicitis K35.80
[2023-06-08 11:05] VITALS: BP 130/90; PULSE 101; BMI 37.0
== END 2023-06-08 11:18 | disposition home or self-care (01) ==
PROVIDERS: Visit Provider Surgery
DX: K35.80 Unspecified acute appendicitis (principal)
CPT/HCPCS: 99024

== ENCOUNTER → 2023-06-08 10:42 | Outpatient (BNVA) | payer OTHER, SELFPAY | PROVIDERS: Visit Provider Surgery ==

== ENCOUNTER 2023-07-18 13:37 | Outpatient (AMB) | payer OTHER, SELFPAY ==
--- NOTE | 2023-07-18 13:40 | MHC.OFFVIS ---
Intake Vital Signs 07/18/23 13:43 Height 5 ft 7 in Weight 236 lb 2 oz BMI 37.0 BP 90/60 Blood Pressure Location Rt brachial Position Sitting Intake Visit Reasons: 6 month follow up/US follow up Allergies No Known Allergies [No Known Allergies*] Allergy (Verified 06/08/23 11:05) HPI HPI Comments History of Present Illness Details Presenting for follow-up ultrasound regarding myomas in complex ovarian cyst identified on previous ultrasound in 11/06. Ultrasound done in 06/06 showed the following: The uterus is of enlarged measuring 12.2 x 8.1 x 8.6 cm. A regular homogeneous endometrium is identified measuring 0.7 cm. Nabothian cysts in the cervix. A 7.2 x 7.0 x 7.5 cm transmural myoma in the right fundus of the uterus, previously 6.7 x 5.4 x 5.8 cm Both ovaries are of normal size and echogenicity. The right measures 3.0 x 2.4 x 2.4 cm for a volume of 9.1 mL. The left measures 3.2 x 2.5 x 2.8 cm for a volume of 11.4 mL with only visualized transabdominally. No suspicious adnexal mass. There is no pelvic free fluid.: Recent CT scan the emergency room showed following: PELVIC VISCERA: There is a 6.5 x 6 cm mass in the right side of the uterine fundus, deviating the endometrium to the left, most likely a leiomyoma, not significantly changed from pelvic MRI of 11/08/2022. [facility] Medical History Mastodynia (02/14/13) Chronic pain of right knee (04/10/21) Chronic GERD (04/08/21) Dense breast Well woman exam control counseling Encounter to discuss test results Urinary incontinence IUD surveillance Tendonitis of knee Incomplete bladder emptying Breakthrough bleeding with IUD Encounter for annual routine gynecological examination Uterine fibroid ADHD (attention deficit hyperactivity disorder) evaluation Anxiety Annual physical exam Surgical History History of laparoscopic appendectomy (05/31/23) History of loop electrical excision procedure (LEEP) History of breast surgery History of section Family History Father No problems noted. 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 [place] Sexual orientation: Straight/Heterosexual Gender identity: Female Female Reproductive History Menstrual Age of Menarche: 16 Review of Systems Const All systems reviewed & are unremarkable except as noted in HPI and below Reports as per HPI and Reports no additional complaints GI Reports no additional complaints Reports no additional complaints Assessment & Plan Assessment & Plan (1) Uterine myoma: Code(s): D25.9 - Leiomyoma of uterus, unspecified Plan: Discussed with the patient the findings on pelvic ultrasound & the risk of myosarcoma; discussed with the patient the options of treatment including expectant management versus hysterectomy; the pros and cons, risks benefits of each approach were discussed with the patient including the fact that in cases of myosarcoma, surgical treatment can lead to early diagnosis and positively affects the prognosis; after further discussion, the patient decided to proceed with expectant management. Will repeat pelvic ultrasound in 6. Instructions given to patient to call in case any of the following occurs: pressure symptoms, abnormal uterine bleeding, pelvic pain; and to schedule a 6 month follow-up appointment . All questions answered, the patient verbalized understanding and agreed with the plan . (2) Complex ovarian cyst: Code(s): N83.299 - Other ovarian cyst, unspecified side Plan: Discussed with the patient ultrasound findings showing the previously identified complex cyst has resolved. The patient was instructed to call if symptoms recur. All questions were answered the patient verbalized understanding. Orders: Orders US pelvic and transvaginal 6 Months D25.9 - Leiomyoma of uterus, unspecified Coding Level of Care Code Est Pt Level 3 (10157) Diagnoses Uterine myoma D25.9 Complex ovarian cyst N83.299
[2023-07-18 13:43] VITALS: BP 90/60; BMI 37.0
== END 2023-07-18 14:21 | disposition home or self-care (01) ==
PROVIDERS: Visit Provider Obstetrics & Gynecology
DX: D25.9 Leiomyoma of uterus, unspecified (principal); N83.299 Other ovarian cyst, unspecified side
CPT/HCPCS: 99213

== ENCOUNTER → 2023-07-18 13:37 | Outpatient (BNVA) | payer OTHER, SELFPAY | PROVIDERS: Visit Provider Obstetrics & Gynecology ==

== ENCOUNTER 2023-07-23 12:34 | Outpatient (REF) | payer OTHER, SELFPAY | END 2023-07-23 12:35 | disposition home or self-care (01) | LOC: HO.MAMMO 12:34 | PROVIDERS: Visit Provider Advanced Practice Midwife | DX: Z12.31 Encounter for screening mammogram for malignant neoplasm of breast (principal) | CPT/HCPCS: 77063; 77067 ==

== ENCOUNTER → 2023-07-23 12:45 | Outpatient (BNV) | payer OTHER, SELFPAY | PROVIDERS: Visit Provider Radiology Diagnostic Radiology | DX: Z12.31 Encounter for screening mammogram for malignant neoplasm of breast (principal) | CPT/HCPCS: 77063; 77067 ==

== ENCOUNTER 2024-01-09 12:47 | Outpatient (REF) | payer OTHER, SELFPAY ==
--- NOTE | ~2024-01-09 | US_ITS ---
EXAMINATION: US PELVIS CLINICAL INFORMATION: Myoma, last menstrual period 01/03/2024. Patient denies pain. COMPARISON: CT abdomen and pelvis of 05/31/2023. Pelvic ultrasound of 05/16/2023. TECHNIQUE: Ultrasound of the pelvis is performed using both transabdominal and transvaginal transducers along with Doppler. Transvaginal imaging is performed due to inadequate visualization transabdominally. FINDINGS: Uterus is anteverted and heterogeneous and measures 12.5 x 7.6 x 9.4 cm. An 8.3 x 7.2 x 7.6 cm right fundal fibroid previously measured 7.2 x 7.0 x 7.5 cm. Endometrial thickness is 4 mm. No significant free fluid. Nabothian cysts identified. Right ovary measures 5.5 x 3.2 x 4.1 cm, volume 37.7 mL. Right ovarian 3.4 x 2.8 x 2.8 cm cyst is likely physiologic. Left ovary measures 3.1 x 1.9 x 2.7 cm, volume 8.5 mL and was seen only on limited transabdominal ultrasound images. Left ovarian 2.9 x 1.9 x 2.1 cm cyst appears simple, likely physiologic. There is no specific indication for additional imaging at this time. No significant free fluid in the pelvis. US/US pelvic and transvaginal IMPRESSION: 1. An 8.3 cm right fundal fibroid previously measured 7.2 cm. 2. Endometrial thickness is 4 mm.
== END 2024-01-09 12:48 | disposition home or self-care (01) ==
LOC: HO.US 12:47
PROVIDERS: Visit Provider Advanced Practice Midwife
DX: D25.9 Leiomyoma of uterus, unspecified (principal)
CPT/HCPCS: 76830; 76856

== ENCOUNTER 2024-02-13 13:33 | Outpatient (AMB) | payer OTHER, SELFPAY ==
--- NOTE | 2024-02-13 13:57 | MHC.OFFVIS ---
Vital Signs 02/13/24 14:03 Height 5 ft 7 in Weight 235 lb 14.314 oz BMI 36.9 BP 122/80 Intake Visit Reasons: Ultrasound follow up Allergies No Known Allergies [No Known Allergies*] Allergy (Verified 06/08/23 11:05) HPI Comments Details: Presenting for ultrasound follow-up complaining of heavy irregular menstrual cycles associated with passage of blood clots and pelvic cramping. Pelvic ultrasound done recently showed the following: Uterus is anteverted and heterogeneous and measures 12.5 x 7.6 x 9.4 cm. An 8.3 x 7.2 x 7.6 cm right fundal fibroid previously measured 7.2 x 7.0 x 7.5 cm. Endometrial thickness is 4 mm. No significant free fluid. Nabothian cysts identified. Right ovary measures 5.5 x 3.2 x 4.1 cm, volume 37.7 mL. Right ovarian 3.4 x 2.8 x 2.8 cm cyst is likely physiologic. Left ovary measures 3.1 x 1.9 x 2.7 cm, volume 8.5 mL and was seen only on limited transabdominal ultrasound images. Left ovarian 2.9 x 1.9 x 2.1 cm cyst appears simple, likely physiologic. There is no specific indication for additional imaging at this time. No significant free fluid in the pelvis. Last co testing was negative in 03/05 Last mammogram was in BI-RADS 1 in 08/06 [facility] Medical History Mastodynia (02/14/13) Chronic pain of right knee (04/10/21) Chronic GERD (04/08/21) Dense breast Well woman exam control counseling Encounter to discuss test results Urinary incontinence IUD surveillance Tendonitis of knee Incomplete bladder emptying Breakthrough bleeding with IUD Encounter for annual routine gynecological examination Uterine fibroid ADHD (attention deficit hyperactivity disorder) evaluation Anxiety Annual physical exam Surgical History History of laparoscopic appendectomy (05/31/23) History of loop electrical excision procedure (LEEP) History of breast surgery History of section Family History Father No problems noted. 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[facility] [place] Sexual orientation: Straight/Heterosexual Gender identity: Female Female Reproductive History Menstrual Age of Menarche: 16 Review of Systems Const All systems reviewed & are unremarkable except as noted in HPI and below Reports as per HPI and Reports no additional complaints GI Reports no additional complaints Reports no additional complaints Physical Exam Vital Signs: Last Vital Signs BP 122/80 02/13/24 14:03 BMI result Body Mass Index 36.9 Assessment & Plan Assessment & Plan (1) Abnormal uterine bleeding (AUB): Code(s): N93.9 - Abnormal uterine and vaginal bleeding, unspecified Category: Medical Plan: CBC, TSH, prolactin, FSH/LH, HCG, and pelvic ultrasound ordered. Discussed with the patient the different causes of abnormal bleeding including thyroid disorders, uterine and ovarian pathology, endometrial hyperplasia, carcinoma and other potential causes. Discussed with the patient the work up including CBC (to r/o anemia), TSH, pelvic Ultrasound, endometrial biopsy to r/o endometrial pathology. All questions answered and the patient verbalized understanding. Instructed the patient to schedule an appointment for an endometrial biopsy in 2 weeks. (2) Uterine myoma: Comment: Enlarging Code(s): D25.9 - Leiomyoma of uterus, unspecified Category: Medical Plan: Discussed with the patient the results of the ultrasound and the size of the myomas enlarging. Discussed with the patient risk of myosarcoma and symptoms that are caused by myomas including but not limited to pelvic pain, pressure symptoms, abnormal uterine bleeding. In addition discussed with the patient options of treatment for myomas including medical, or surgical treatment including hysterectomy. All pros and cons, risks and benefits of all options were discussed with the patient. The patient understands that delay in surgical treatment in case of myosarcoma can affect her prognosis, after further discussion, the patient decided to discuss it further next visit Orders: Orders TSH reflex Free T4 Today N93.9 - Abnormal uterine and vaginal bleeding, unspecified Prolactin Today N93.9 - Abnormal uterine and vaginal bleeding, unspecified HCG Quantitative Today N93.9 - Abnormal uterine and vaginal bleeding, unspecified Complete Blood Count no Diff Today N93.9 - Abnormal uterine and vaginal bleeding, unspecified Coding Level of Care Code Est Pt Level 3 (42227) Diagnoses Abnormal uterine bleeding (AUB) N93.9 Uterine myoma D25.9
[2024-02-13 14:03] VITALS: BP 122/80; BMI 36.9
== END 2024-02-13 15:57 | disposition home or self-care (01) ==
PROVIDERS: Visit Provider Obstetrics & Gynecology
DX: N93.9 Abnormal uterine and vaginal bleeding, unspecified (principal); D25.9 Leiomyoma of uterus, unspecified
CPT/HCPCS: 99213

== ENCOUNTER → 2024-02-13 13:33 | Outpatient (BNVA) | payer OTHER, SELFPAY | PROVIDERS: Visit Provider Obstetrics & Gynecology ==

== ENCOUNTER 2024-02-14 13:50 | Outpatient (REF) | payer OTHER, SELFPAY ==
[2024-02-14 14:24] LABS: Hematocrit 42.4 % (37.0-47.0); Hemoglobin 13.7 g/dl (12.0-16.0); Mean Corpuscular HGB Conc 32.3 g/dl (31.0-35.0); Mean Corpuscular Hemoglobin 27.3 pg (27.0-33.0); Mean Corpuscular Volume 84.5 fL (80.0-98.0); Mean Platelet Volume 9.2 fL (9.4-12.3); Platelet Count 284 X10*3/uL (160-400); Red Blood Count 5.02 X10*6/uL (4.20-5.50); White Blood Count 9.2 X10*3/uL (4.8-10.8)
[2024-02-14 15:16] LABS: HCG Quantitative < 2 mIU/mL; TSH reflex Free T4 1.15 uIU/mL (0.32-4.0)
[2024-02-15 06:43] LABS: Prolactin 6.5 ng/mL
== END 2024-02-14 13:51 | disposition home or self-care (01) ==
LOC: HO.LAB 13:50
PROVIDERS: Visit Provider Obstetrics & Gynecology
DX: N93.9 Abnormal uterine and vaginal bleeding, unspecified (principal)
CPT/HCPCS: 36415; 84146; 84443; 84702; 85027

== ENCOUNTER 2024-02-21 09:43 | Outpatient (REF) | payer OTHER, SELFPAY | END 2024-02-21 09:44 | disposition home or self-care (01) | LOC: HO.LNP 09:43 | PROVIDERS: Visit Provider Obstetrics & Gynecology | DX: N93.9 Abnormal uterine and vaginal bleeding, unspecified (principal) | CPT/HCPCS: 58100; 81025; 88305 ==

== ENCOUNTER 2024-02-21 09:43 | Outpatient (AMB) | payer OTHER, SELFPAY ==
--- NOTE | 2024-02-21 09:52 | MHC.OFFVIS ---
Intake Visit Reasons: EMB Allergies No Known Allergies [No Known Allergies*] Allergy (Verified 06/08/23 11:05) HPI Comments Details: Presenting for endometrial biopsy [facility] Medical History Mastodynia (02/14/13) Chronic pain of right knee (04/10/21) Chronic GERD (04/08/21) Dense breast Well woman exam control counseling Encounter to discuss test results Urinary incontinence IUD surveillance Tendonitis of knee Incomplete bladder emptying Breakthrough bleeding with IUD Encounter for annual routine gynecological examination Uterine fibroid ADHD (attention deficit hyperactivity disorder) evaluation Anxiety Annual physical exam Surgical History History of laparoscopic appendectomy (05/31/23) History of loop electrical excision procedure (LEEP) History of breast surgery History of section Family History Father No problems noted. 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[employer] [place] Sexual orientation: Straight/Heterosexual Gender identity: Female Female Reproductive History Menstrual Age of Menarche: 16 Review of Systems Const All systems reviewed & are unremarkable except as noted in HPI and below Reports as per HPI and Reports no additional complaints GI Reports no additional complaints Reports no additional complaints Office Procedures Endometrial Biopsy Details: The patient was counseled regarding the indication and benefits of endometrial sampling to rule out endometrial pathology including not limited to endometrial hyperplasia or endometrial cancer and others; The alternatives (Either do nothing vs. hysteroscopy D&C) & the risks were discussed with the patient including but not limited: pain, uterine perforation, bleeding, infection, possible injury to bladder, bowel, ureter, possible need for blood transfusion with all its possible risks. The patient verbalized understanding all questions answered and signed consent. Urine test done in the office was negative The patient was placed into the dorsal lithotomy position; a speculum was inserted in the vagina. Using aseptic technique for the procedure, the cervix was cleansed with Betadine. The anterior lip of the cervix was grasped with a single tooth tenaculum. The uterus was sounded to 7 cm with a 4 mm Pipelle was used. Tissues samples were obtained and placed in formalin, in a patient labeled container and sent to the pathology department. At the end of the procedure, there was minimal bleeding noted The patient tolerated the procedure well and was discharged in good condition with the following instructions: Nothing in the vagina until the bleeding stops. No sex until the bleeding stops, to call if any of the following occurs: fever (>100.4), flu-like symptoms, abdominal pain, heavy bleeding, four smelling vaginal discharge. The patient was instructed to schedule a Follow up appointment in 2 weeks to discuss pathology results of the biopsy and treatment options. This note was generated with a voice recognition program. Some errors may have been overlooked during the review of this note. Sometimes these errors may affect the content or meaning of a given sentence. [id number] Biopsy Assessment & Plan Assessment & Plan (1) Abnormal uterine bleeding (AUB): Code(s): N93.9 - Abnormal uterine and vaginal bleeding, unspecified Category: Medical Plan: EMB done, see procedure note Orders: Orders AMB Endometrial Biopsy Today N93.9 - Abnormal uterine and vaginal bleeding, unspecified Coding Level of Care Code Procedure Only Diagnoses Abnormal uterine bleeding (AUB) N93.9 CPT Codes Endometrial Biopsy - CPT: 11570-[id number] Biopsy ([id number])
== END 2024-02-21 10:18 | disposition home or self-care (01) ==
PROVIDERS: Visit Provider Obstetrics & Gynecology
DX: N93.9 Abnormal uterine and vaginal bleeding, unspecified (principal); Z32.02 Encounter for pregnancy test, result negative
CPT/HCPCS: 58100

== ENCOUNTER 2024-03-25 09:43 | Outpatient (AMB) | payer OTHER, SELFPAY ==
--- NOTE | 2024-03-25 10:14 | MHC.OFFVIS ---
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 Still complaining of pelvic pressure, cramping and abnormal uterine bleeding Last Pap/HPV was negative in 03/05 Last Mammogram was BI-RADS 1 in 08/06 No previous screening colonoscopy The following workup for AUB was recently done: H&H= 13.7/42.4 TSH, hCG, GC and chlamydia were negative. Last EMB done in 03/06 pathology showed the following: Fragments of mid-secretory endometrium with stromal breakdown; negative for atypia, hyperplasia or malignancy Last ultrasound done in 02/05 showed the following: Uterus is anteverted and heterogeneous and measures 12.5 x 7.6 x 9.4 cm. An 8.3 x 7.2 x 7.6 cm right fundal fibroid previously measured 7.2 x 7.0 x 7.5 cm. Endometrial thickness is 4 mm. No significant free fluid. Nabothian cysts identified. Right ovary measures 5.5 x 3.2 x 4.1 cm, volume 37.7 mL. Right ovarian 3.4 x 2.8 x 2.8 cm cyst is likely physiologic. Left ovary measures 3.1 x 1.9 x 2.7 cm, volume 8.5 mL and was seen only on limited transabdominal ultrasound images. Left ovarian 2.9 x 1.9 x 2.1 cm cyst appears simple, likely physiologic. There is no specific indication for additional imaging at this time. No significant free fluid in the pelvis. [facility] Medical History Mastodynia (02/14/13) Chronic pain of right knee (04/10/21) Chronic GERD (04/08/21) Dense breast Well woman exam control counseling Encounter to discuss test results Urinary incontinence IUD surveillance Tendonitis of knee Incomplete bladder emptying Breakthrough bleeding with IUD Encounter for annual routine gynecological examination Uterine fibroid ADHD (attention deficit hyperactivity disorder) evaluation Anxiety Annual physical exam Surgical History History of laparoscopic appendectomy (05/31/23) History of loop electrical excision procedure (LEEP) History of breast surgery History of section Family History Father No problems noted. 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[facility] [place] Sexual orientation: Straight/Heterosexual Gender identity: Female Female Reproductive History Menstrual Age of Menarche: 16 Date of last pap smear: 02/24/22 Date of Mammogram: 07/23/23 Review of Systems Const All systems reviewed & are unremarkable except as noted in HPI and below Card Reports as per HPI Resp Reports as per HPI GI Reports as per HPI and Reports no additional complaints Reports as per HPI Physical Exam Vital Signs: BMI result Body Mass Index 36.9 Const General: cooperative, healthy appearing and comfortable Chest Chest palpation & inspection: normal inspection of the chest and normal palpation of entire chest wall Breast/axilla inspection: normal inspection of the breasts and normal inspection of the axillae Breast/axilla palpation: normal palpation of the breasts, normal palpation of the axillae and no axillary lymphadenopathy Resp Effort & Inspection: normal respiratory effort Auscultation: clear to auscultation bilaterally Percussion: percussion normal Cardio Palpation: normal PMI Rate: regular rate Rhythm: regular rhythm Heart sounds: no murmurs and no rubs Peripheral pulses: Peripheral pulses 2+ throughout GI Inspection: Yes normal to inspection Palpation (GI): Soft to palpation, nontender, no guarding, not rigid and No hepatosplenomegaly present Percussion: Yes normal to percussion Auscultation: normal bowel sounds Rectal Exam - Female: deferred General: Yes bladder normal to palpation External Female Exam: No lesion Speculum Exam - Vagina: normal appearance of the vagina, normal palpation, normal vaginal discharge and not erythematous Speculum Exam - Cervix: normal appearance of the cervix and normal palpation Bimanual exam- vagina & uterus: normal bimanual exam, normal palpation, uterine size normal, bladder normal to palpation, consistency normal and normal palpation Bimanual Exam- Adnexa, other: normal adnexae, no masses and no tenderness Assessment & Plan Assessment & Plan (1) Uterine myoma: Comment: Enlarging Code(s): D25.9 - Leiomyoma of uterus, unspecified Category: Medical Plan: Discussed with the patient the results of the ultrasound and the size of the myomas. Discussed with the patient risk of myosarcoma and symptoms that are caused by myomas including but not limited to pelvic pain, pressure symptoms, abnormal uterine bleeding. In addition discussed with the patient options of treatment for myomas including: Medical treatment including, control pills, Mirena IUD, progesterone treatment, GnRH agonist/antagonist, uterine artery embolization or endometrial ablation versus surgical treatment including hysterectomy. All pros and cons, risks and benefits of all options were discussed with the patient. The patient decided to proceed with surgical management. Discussed with the patient the different types of hysterectomies including, vaginal, laparoscopic assisted vaginal, robotic assisted laparoscopic,& abdominal with BSO. All pros, cons, r/b of each approach were discussed the patient including evidence that morbidity is less and recovery is shorter with minimally invasive approaches to hysterectomy. Discussed with the patient the lack of availability of the robot [employer] robot and/or minimally invasive councilor specialist at [facility]. Will refer to OBGYN at [facility] for surgical management. (2) Well woman exam: Code(s): Z01.419 - Encounter for gynecological examination (general) (routine) without abnormal findings Category: Medical Plan: Co testing not indicated this year. Counseled the patient about the recommended dietary allowance of 1200 mg of Calcium & 600 IU of vitamin D. Instructions given the patient to schedule next screening Mammogram in 08/07. The patient was referred to GI for screening colonoscopy . The patient was instructed to perform monthly self-breast exams and schedule annual exam in a year. All questions answered and the patient verbalized understanding. Orders: Referrals Gastroenterology Referral Z12.11 - Encounter for screening for malignant neoplasm of colon Coding Level of Care Code Est Pt Prev Care 40-64y(71716) Diagnoses Uterine myoma D25.9 Well woman exam Z01.419
[2024-03-25 10:15] VITALS: BP 118/74; BMI 36.9
== END 2024-03-25 10:35 | disposition home or self-care (01) ==
PROVIDERS: Visit Provider Obstetrics & Gynecology
DX: Z01.419 Encounter for gynecological examination (general) (routine) without abnormal findings (principal); D25.9 Leiomyoma of uterus, unspecified
CPT/HCPCS: 99396

== ENCOUNTER → 2024-03-25 09:43 | Outpatient (BNVA) | payer OTHER, SELFPAY | PROVIDERS: Visit Provider Obstetrics & Gynecology ==

== ENCOUNTER 2024-10-29 12:16 | Outpatient (AMB) | payer OTHER, SELFPAY ==
[2024-10-29 12:28] VITALS: BP 126/80; PULSE 86; O2SAT 97; BMI 37.6
--- NOTE | 2024-10-29 12:28 | A.OFFPC_ITS ---
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 She reports a history of anxiety, which she indicates is well- controlled without medication. She has not experienced any recent exacerbations and does not take any psychiatric medications. There are no associated symptoms such as suicidal or homicidal ideations. 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 - Engages in daily physical activity by walking her dogs Review of Systems - Chest: Denies any chest pain - Respiratory: Denies shortness of breat h - Neurological: Denies numbness or tingl ing anywhere - Gastrointestinal: Denies constipation or diarrhea - Psychiatric: Denies suicidal ideation, denies homicidal ideation Physical Exam General: Obese, cooperative, healthy appearing, comfortable, no acute distress and well developed Orientation: Patient oriented x3 Limitations: No limitations Head: Normal to inspection Ears: Hearing grossly normal bilaterally Nose: Normal external nose present Face and sinus: Normal facial exam Eyes: Appearance normal, both eyes and all related structures Neck: Normal visual inspection and Yes full ROM Respiratory: Normal respiratory effort and able to speak in complete sentences. Clear to auscultation bilaterally Cardiovascular: Regular rate and rhythm. Normal S1 and S2 GI: Normal to inspection. Soft to palpation and nontender Skin: No rashes or lesions noted Neuro: Patient oriented x3 Extremities: Normal to inspection Results Plan - Recommended scheduling and obtaining l aboratory tests - Discussed the importance of continuati on of daily walks for physical health - Encouraged to attend the upcoming colo noscopy appointment for routine screening Patient was informed and verbally consented to the use of an ambient scribe for clinic note documentation during this visit. Discussion Notes I advised the patient on the importance of regular physical examinations and the role they play in maintaining overall health. We discussed her current method of managing anxiety, noting the absence of medication and lack of recent symptom exacerbation. I emphasized the importance of regular exercise, and the patient was receptive to the advice to continue her daily walks with her dogs. I reiterated the significance of obtaining laboratory tests soon and attending her scheduled colonoscopy to ensure comprehensive health screening and early detection of potential issues. Patient Instructions - Continue daily walks with pets for exe rcise - Schedule and complete laboratory tests soon - Attend the colonoscopy appointment as planned [facility] Medical History Mastodynia (02/14/13) Chronic pain of right knee (04/10/21) Chronic GERD (04/08/21) Dense breast Well woman exam control counseling Encounter to discuss test results Urinary incontinence IUD surveillance Tendonitis of knee Incomplete bladder emptying Breakthrough bleeding with IUD Encounter for annual routine gynecological examination Uterine fibroid ADHD (attention deficit hyperactivity disorder) evaluation Anxiety Annual physical exam Surgical History Hx of hysterectomy History of laparoscopic appendectomy (05/31/23) History of loop electrical excision procedure (LEEP) History of breast surgery History of section Family History Father No problems noted. 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 1. Little interest or pleasure in doing things: not at all 2. Feeling down, depressed, or hopeless: not at all 3. Trouble falling or staying asleep, or sleeping too much: not at all 4. Feeling tired or having little energy: not at all 5. Poor appetite or overeating: not at all 6. Feeling bad about yourself - or that you are a failure or have let yourself or your family down: not at all 7. Trouble concentrating on things, such as reading the newspaper or watching television: not at all 8. Moving or speaking so slowly that other people could have noticed. Or the opposite - being so fidgety or restless that you have been moving around a lot more than usual: not at all 9. Thoughts that you would be better off or of hurting yourself in some way: not at all Total score: 0 Depression Screening Interpretation: Negative Depression Screening Done: Yes 20024 - PHQ-9 Billing: Yes Source: Developed by Drs. Hamilton Bender, Anabel Lugo, Paulino Arellano and colleagues, with an educational lucho from [employer]. Thrive Questionnaire Date Thrive assessed: 10/29/24 I am a: Patient What is your living situation today?: I have a steady place to live Within the past 12 months, did the food you bought not last and you didn't have the money to get more?: Never true Within the past 12 months, did you worry whether your food would run out before you got money to buy more?: Never true Do you have trouble paying for medicines?: No Do you have trouble getting transportation to medical appointments?: No Do you have trouble paying your heating and electricity bill?: No Do you have trouble taking care of your child, family member or friend?: No Do you have trouble with day-to-day activities such as bathing, preparing meals, shopping, managing finances, etc.?: No Are you currently unemployed and looking for a job?: No Are you interested in more education?: No Please select the resources that you would like help with: None Currently or been in a relationship where the following occur: No concerns reported THRIVE Score: 0 AUDIT C Alcohol Use Questionnaire (AUDIT-C) 1. How often do you have a drink containing alcohol?: Never 3. How often do you have six or more drinks on one occasion?: Never Total Score: 0 DEION-7 AMB Questionnaire DEION-7 Date DEION - 7 assessed: 10/29/24 Feeling nervous, anxious, or on edge: 0 = Not at all Not being able to stop or control worryin = Not at all Worrying too much about different things: 0 = Not at all Trouble relaxin = Not at all Being so restless that it is hard to sit still: 0 = Not at all Becoming easily annoyed or irritable: 0 = Not at all Feeling afraid as if something awful might happen: 0 = Not at all Total DEION-7 score (0-4 normal; 5-9 mild; 10-14 moderate; 15-21 severe): 0 Source: Developed by Drs. Hamilton Bender, Anabel Lugo, Paulino Arellano and colleagues, with an educational lucho from [employer]. DEION-7 Assessment Billing DEION-7 Assessment Tool: DEION-7 Assessment 38818 Physical exam (Primary Care) Vital Signs: Last Vital Signs Pulse 86 10/29/24 12:28 BP 126/80 10/29/24 12:28 Pulse Ox 97 10/29/24 12:28 Oxygen Delivery Method Room Air 10/29/24 12:28 BMI result Body Mass Index 37.6 Tobacco/Smoking Status: Tobacco use Status Tobacco use date assessed 10/29/24 10/29/24 12:38 Patient Tobacco Use Status Former Tobacco user 10/29/24 12:38 PHQ-9: PHQ-9 Score PHQ-9: Total score 0 10/29/24 12:38 Depression Screening Interpretation: Negative Thrive Assessment: Date of Thrive Assessment Date Thrive assessed 10/29/24 10/29/24 12:38 Currently or been in a relationship where the following occur: No concerns reported Coding Level of Care Code New Pt Prev Care 40-64y(65981) Diagnoses Physical exam Z00.00 Vitamin D deficiency E55.9 Additional Codes DEION-7 Assessment Billing - DEION-7 Assessment Tool: DEION-7 Assessment 32911 ([id number]) PHQ-9 - 35299 - PHQ-9 Billing: Yes ([id number]) Assessment & Plan Assessment & Plan (1) Physical exam: Code(s): Z00.00 - Encounter for general adult medical examination without abnormal f indings Category: Medical (2) Vitamin D deficiency: Code(s): E55.9 - Vitamin D deficiency, unspecified Category: Medical Plan . Orders: Orders Comprehensive [place]. Panel Fast Today Z00.00 - Encounter for general adult medical examination without abnormal findings Lipid Panel Today Z00.00 - Encounter for general adult medical examination without abnormal findings Complete Blood Count Auto Diff Today Z00.00 - Encounter for general adult medical examination without abnormal findings TSH reflex Free T4 Today Z00.00 - Encounter for general adult medical examination without abnormal findings UA CC w/rflx Micro + Cult Today Z00.00 - Encounter for general adult medical examination without abnormal findings Vitamin D 25-OH Total Today E55.9 - Vitamin D deficiency, unspecified
== END 2024-10-29 13:05 | disposition home or self-care (01) ==
PROVIDERS: PCP Nurse Practitioner Family; Visit Provider Nurse Practitioner Family
DX: Z00.00 Encounter for general adult medical examination without abnormal findings (principal); E55.9 Vitamin D deficiency, unspecified

== ENCOUNTER → 2024-10-29 12:16 | Outpatient (BNVA) | payer OTHER, SELFPAY | PROVIDERS: PCP Nurse Practitioner Family; Visit Provider Nurse Practitioner Family | DX: Z00.00 Encounter for general adult medical examination without abnormal findings (principal); E55.9 Vitamin D deficiency, unspecified | CPT/HCPCS: 96127 ==

== ENCOUNTER 2024-11-19 09:44 | Outpatient (REF) | payer OTHER, SELFPAY ==
[2024-11-19 10:01] LABS: MANUAL DIFF FLAG NO
[2024-11-19 10:25] LABS: Basophils Absolute Auto 0.1 X10*3/uL (0.0-0.2); Basophils Percent Auto 0.9 % (0-2); Eosinophils Absolute Auto 0.2 X10*3/uL (0.0-0.4); Eosinophils Percent Auto 2.4 % (0-4); Hematocrit 45.3 % (37.0-47.0); Hemoglobin 14.5 g/dl (12.0-16.0); Imm Gran Abs Auto 0.02 X10*3/uL (0.00-0.03); Imm Gran Pct Auto 0.3 % (0.0-0.4); Lymphocytes Absolute Auto 2.2 X10*3/uL (1.2-4.9); Lymphocytes Percent Auto 29.3 % (20-40); Mean Corpuscular Hemoglobin 26.3 pg (27.0-33.0); Mean Corpuscular Volume 82.1 fL (80.0-98.0); Mean Platelet Volume 9.9 fL (9.4-12.3); Monocytes Absolute Auto 0.8 X10*3/uL (0.1-1.2); Monocytes Percent Auto 10.3 % (2-11); Neutrophils Absolute Auto 4.2 x10*3/uL (2.0-8.3); Neutrophils Percent Auto 56.8 % (45-73); Platelet Count 227 X10*3/uL (160-400); Red Blood Count 5.52 X10*6/uL (4.20-5.50); Red Cell Distribution Width 14.7 % (11.0-16.0); White Blood Count 7.5 X10*3/uL (4.8-10.8)
[2024-11-19 11:04] LABS: Alanine Aminotransferase 27 U/L (0-31); Albumin Level 4.2 g/dL (3.5-5.0); Alkaline Phosphatase 74 U/L (39-117); Anion Gap 12 (12-20); Aspartate Amino Transferase 28 U/L (5-31); Bilirubin Total 0.4 mg/dL (0.0-1.0); Blood Urea Nitrogen 17 mg/dL (9-16); Calcium 9.2 mg/dL (8.4-10.2); Carbon Dioxide 24 mmol/L (22-29); Chloride 107 mmol/L (96-108); Cholesterol 147 mg/dL (<200); Estimated Glomerular Filt Rate > 60; Glucose Fasting 116 mg/dL (60-99); HDL Cholesterol 43 mg/dL (>40); LDL Cholesterol Calculated 77 mg/dL (<100); Potassium 4.6 mmol/L (3.3-5.1); Sodium 138 mmol/L (135-145); Total Protein 8.4 g/dL (6.5-8.0); Triglycerides 136 mg/dL (<150)
[2024-11-19 11:22] LABS: Appearance Urine Cloudy; Color Urine Yellow; Glucose Urine UA Negative (Negative); Leukocyte Esterase Urine Negative (Negative); Nitrite Urine Negative (Negative); PH 5.5 (5.0-9.0); Specific Gravity - Urine 1.025 (1.005-1.025); Urine Blood Negative (Negative); Urine Ketones Negative (Negative); Urine Protein Trace mg/dL (Neg-Trace)
[2024-11-19 11:24] LABS: TSH reflex Free T4 1.57 uIU/mL (0.32-4.0); Vitamin D 25-OH Total 22.2 ng/mL (>30)
== END 2024-11-19 09:45 | disposition home or self-care (01) ==
LOC: HO.LAB 09:44
PROVIDERS: PCP Nurse Practitioner Family; Visit Provider Nurse Practitioner Family
DX: Z00.00 Encounter for general adult medical examination without abnormal findings (principal); E55.9 Vitamin D deficiency, unspecified
CPT/HCPCS: 36415; 80053; 80061; 81003; 82306; 84443; 85025

== ENCOUNTER 2025-02-26 05:49 | Day surgery (SDC) | payer OTHER, SELFPAY ==
[2025-02-24 14:20] VITALS: BMI 37.3
--- NOTE | 2025-02-25 09:36 | HO.ANESPROP2 ---
Documented by User: Jennifer Siegel NP 02/25/25 09:37 HPI - Anesthesia Eval Consult details Narrative: 49yo F for Upper Endoscopy and Colonoscopy PMF Active Problems Active Problems: All Active Problems Vitamin D deficiency (Acute) Physical exam (Acute) Abnormal uterine bleeding (AUB) (Acute) Mastodynia (Acute 02/14/13) Chronic pain of right knee (Acute 04/10/21) Dense breast (Acute) Complex ovarian cyst (Acute) Uterine myoma (Acute) Simple ovarian cyst (Acute) ADHD (attention deficit hyperactivity disorder) evaluation (Acute) Chronic GERD (Acute 04/08/21) Uterine fibroid (Acute) Anxiety (Acute) Past Medical History Medical History (Updated 02/24/25 @ 14:18 by Sloane Sherman RN) Chronic GERD (04/08/21) Urinary incontinence Incomplete bladder emptying Uterine fibroid Anxiety Family History Family History Father No problems noted. Mother CVD (cardiovascular disease) Mental health disorder Maternal Grandmother Diabetes Hypertension Maternal Grandfather CVD (cardiovascular disease) Sister Borderline high blood pressure Family history of problems with anesthesia: No Surgical History Surgical History (Updated 02/26/25 @ 06:16 by Faith Soriano RN) Hx of appendectomy History of esophagogastroduodenoscopy (EGD) Hx of hysterectomy History of loop electrical excision procedure (LEEP) History of breast surgery History of section History of Problems with Anesthesia: No Social History Social History Household Members: Spouse Housing: House Are you a primary geriatric care manager to a significant other at home: No Do you presently have visiting nurse or other home services: No Alcohol intake: unknown Patient Tobacco Use Status: Former Tobacco user Tobacco use type: Cigarette Smoked in Last 30 Days: No Use of substances other than those prescribed or required for medical reasons: No Have you been hit, kicked, punched, or otherwise hurt by someone within the past year? 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 [place] Sexual orientation: Straight/Heterosexual Gender identity: Female Cognitive needs: No Hearing needs: No Vision needs: Yes Meds Allergies Allergy/AdvReac Type Severity Reaction Status Date / Time No Known Allergies Allergy Verified 02/26/25 06:16 [No Known Allergies*] Home Medications ?Medication ?Instructions ?Recorded ?Confirmed ?Last Taken ?Type omeprazole magnesium 20 mg 20 mg PO DAILY 08/11/20 02/26/25 Unknown History tablet,delayed release Metamucil 1 packet PO DAILY 02/26/25 02/26/25 Unknown History Exam Height,Weight and Vital Signs: Height 5 ft 7 in Weight 107.955 kg Assessment and Plan Assessment Anesthesia Assessment: Chart Reviewed Final Anesthetic Review Family History of Problems with Anesthesia: No History of Problems with Anesthesia: No Documented by User: Guerrero Glover MD 02/26/25 07:36 PMFSH Past Medical History Medical History (Updated 02/24/25 @ 14:18 by Sloane Sherman RN) Chronic GERD (04/08/21) Urinary incontinence Incomplete bladder emptying Uterine fibroid Anxiety Family History Family History Father No problems noted. Mother CVD (cardiovascular disease) Mental health disorder Maternal Grandmother Diabetes Hypertension Maternal Grandfather CVD (cardiovascular disease) Sister Borderline high blood pressure Surgical History Surgical History (Updated 02/26/25 @ 06:16 by Faith Soriano RN) Hx of appendectomy History of esophagogastroduodenoscopy (EGD) Hx of hysterectomy History of loop electrical excision procedure (LEEP) History of breast surgery History of section Social History Social History Household Members: Spouse Housing: House Are you a primary geriatric care manager to a significant other at home: No Do you presently have visiting nurse or other home services: No Alcohol intake: unknown Patient Tobacco Use Status: Former Tobacco user Tobacco use type: Cigarette Smoked in Last 30 Days: No Use of substances other than those prescribed or required for medical reasons: No Have you been hit, kicked, punched, or otherwise hurt by someone within the past year? 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[facility] [place] Sexual orientation: Straight/Heterosexual Gender identity: Female Cognitive needs: No Hearing needs: No Vision needs: Yes Meds Allergies Allergy/AdvReac Type Severity Reaction Status Date / Time No Known Allergies Allergy Verified 02/26/25 06:16 [No Known Allergies*] Home Medications ?Medication ?Instructions ?Recorded ?Confirmed ?Last Taken ?Type omeprazole magnesium 20 mg 20 mg PO DAILY 08/11/20 02/26/25 Unknown History tablet,delayed release Metamucil 1 packet PO DAILY 02/26/25 02/26/25 Unknown History Exam Airway Mallampati Class: II TM Dist: <=3cm Neck ROM: Full Loose/Missing/Broken Teeth: No Heart: ok Lungs: ok Assessment and Plan Assessment Anesthesia Assessment: Anesthesia Plan Discussed Final Anesthetic Review NPO: Yes ASA Class: III Final Preanesthetic Review: No Changes in Pt Med Stat, Meds/Allgs Chart Reviewed, Consent Obtained/Reviewed and Anes Risks/Benef Reviewed Patient Risk: Intermediate Procedure Risk: Intermediate Anesthetic Plan Anesthetic Plan: Agree w/ Assess. and Plan and TIVA Disposition: Standard PACU
[2025-02-26 06:18] VITALS: BP 148/91; PULSE 86; RESP 16; TEMP 36.3; O2SAT 98; BMI 36.0
[2025-02-26] MEDS: Lactated Ringers 1,000 ML 100 ML IVCONT (06:30)
--- NOTE | 2025-02-26 07:36 | P.HPSUR_ITS ---
Pre-Procedural Eval Section A - 24 Hr Update-Section A only Date of Service: 02/26/25 Section B - Complete if H&P > 30 days Chief Complaint: Encounter for screening for malignant neoplasm of Relevant Family History (Specify if Yes): No Relevant Social History: None Present Medications: see Short Stay Collaborative assessment Medical History: Significant History ( Chronic GERD (04/08/21) Urinary inconti nence Incomplete bladder emptying Uterine fibroid Anxiety) History of Previous Operations: Relevant previous surgery/procedure and date(s) (Hx of appendectomy History of esophagogastroduodenoscopy (EGD) Hx of hysterectomy History of laparoscopic appendectomy (05/31/23) History of loop electrical excision procedure (LEEP) History of breast surgery History of section) Allergies: Allergies Allergy/AdvReac Type Severity Reaction Status Date / Time No Known Allergies Allergy Verified 02/26/25 06:16 [No Known Allergies*] Review of Systems Sugical H&P ROS: Negative: Constitution, Cardiovascular, Respiratory, Neurological, Psychiatric, Hem-Onc, Allergic/Immunologic, Gastrointestinal, Genitourinary, Musculoskeletal, Integumentary, Endocrine and Eyes/Ears/Nose/Throat Exam Surgical H&P Exam: Normal: HEENT, Normal: Heart, Normal: Lungs, Normal: Extremities, Normal: Abdomen, Normal: Skin and Normal: Neurological Plan Diagnosis/Plan: Unchanged I have reviewed the history and physical and performed a pertinent physical examination on my patient. No changes have occurred unless specified. Time Spent With Patient Time: Total time managing care of this patient today ____ minutes.
--- NOTE | 2025-02-26 08:03 | HO.OPN-COLON ---
Colonoscopy Operative Note Operative Note Date of Service: 02/26/25 Narrative: Operative Information Procedure Description: EGD, Colonoscopy Indication: GERd, colon screening Anesthesia: [] FLEXIBLE TRANSORAL UPPER GASTROINTESTINAL ENDOSCOPY AND COLONOSCOPY PROCEDURE NOTE UPPER ENDOSCOPY Consent: Indications for the procedure and potential complications of bleeding, perforation, reaction to medications and missed diagnosis were discussed with the patient and informed consent was obtained. Instrument: Olympus GIF H 190 J mid size upper endoscope Monitoring: Vital signs and clinical assessment, continuous EKG monitoring, Pulse oximetry, Carbon Dioxide monitoring and blood pressure monitoring were done throughout the procedure. Procedure: The patient was placed in the left lateral decubitis position and pre-procedure medications were administered and a bite block was placed. The endoscope was inserted into the mouth and advanced under direct vision to the third part of duodenum. A careful inspection was made as the upper endoscope was withdrawn including a retroflexed examination of the proximal stomach; Findings and interventions are described below. Findings: Larynx:normal Esophagus: GE junction at 37 cm, diaphragm hiatus at 37 cm, bx taken from GEJ, distal and proximal esophagus Stomach: mild erythema, and one erosion seen with fundic gland polyps. Biopsies were obtained. Grade 2 flap valve on retroflexed examination of the cardia. Duodenum: patchy erythema consistent with peptic injury Intervention: Biopsies as noted above, COLONOSCOPY Instrument: Olympus variable stiffness pediatric scope 190L Colonoscopy Monitoring: Vital signs and clinical assessment, continuous EKG monitoring, Pulse oximetry, Carbon Dioxide monitoring and blood pressure monitoring were done throughout the procedure. Colon withdrawal time was 11 minutes. Procedure: The patient was placed in the left lateral decubitis position and pre-procedure medications were administered. After a digital rectal examination of the ano-rectum, the video colonoscope was inserted into the rectum and advanced through the colon to the cecum/TI. The colonoscope was slowly withdrawn in a retrograde panoramic fashion and the colon mucosa was carefully examined including a retroflexed view of the rectum. Findings and interventions are described below. Procedure Difficulty:moderate Findings: Terminal Ileum-normal Cecum:normal Ascending Colon: normal Transverse Colon -normal Descending Colon:normal Sigmoid Colon: 6-8 mm sessile polyp removed with cold snare Rectum: Retroflexion with small internal hemorrhoids, grade I Anorectum - normal Colon preparation: [place] Bowel Preparation Scale Right colon; 2 Transverse colon: 2 Left colon; 2 (0 = Unprepared colon segment with mucosa not seen due to solid stool that cannot be cleared. 1 = Portion of mucosa of the colon segment seen, but other areas of the colon segment not well seen due to staining, residual stool and/or opaque liquid. 2 = Minor amount of residual staining, small fragments of stool and/or opaque liquid, but mucosa of colon segment seen well. 3 = Entire mucosa of colon segment seen well with no residual staining, small fragments of stool or opaque liquid) Impression and Post Procedure Diagnosis: Endoscopy Findings: erosive gastritis fundic gland polyps--these are benign duodenitis Colonoscopy Findings: colon polyp x 1 internal hemorrhoids Plan: Await Pathology results Repeat Colonoscopy in 5 years due to polyp or earlier if clinically indicated High fiber diet leaflet avoid straining at stool, epsom salts and sitz bath, anusol supps or cream Above findings were reviewed with the patient and relevant handouts were provided if indicated.
[2025-02-26 08:08] VITALS: BP 100/58; PULSE 79; RESP 18; TEMP 36.6; O2SAT 96
[2025-02-26 08:23] VITALS: BP 116/80; PULSE 79; RESP 18; TEMP 36.9; O2SAT 96
== END 2025-02-26 09:04 | disposition home or self-care (01) ==
PROVIDERS: PCP Nurse Practitioner Family; Visit Provider Internal Medicine Gastroenterology
PROC: (CPT 45385; principal; 2025-02-26 07:30)
DX: Z12.11 Encounter for screening for malignant neoplasm of colon (principal); D12.5 Benign neoplasm of sigmoid colon; K64.0 First degree hemorrhoids; K21.9 Gastro-esophageal reflux disease without esophagitis; K29.60 Other gastritis without bleeding; K29.80 Duodenitis without bleeding; K31.7 Polyp of stomach and duodenum; K44.9 Diaphragmatic hernia without obstruction or gangrene; D25.9 Leiomyoma of uterus, unspecified; R33.9 Retention of urine, unspecified; R32 Unspecified urinary incontinence; F41.9 Anxiety disorder, unspecified; Z79.899 Other long term (current) drug therapy; Z98.890 Other specified postprocedural states
CPT/HCPCS: 45385; 43239; 88305; 88313; 88342; J2003; J2405; J2704; J3010

== ENCOUNTER → 2025-02-26 05:49 | Outpatient (BNV) | payer OTHER, SELFPAY | PROVIDERS: PCP Nurse Practitioner Family; Visit Provider Internal Medicine Gastroenterology | DX: Z12.11 Encounter for screening for malignant neoplasm of colon (principal); K21.9 Gastro-esophageal reflux disease without esophagitis; K29.70 Gastritis, unspecified, without bleeding; K31.7 Polyp of stomach and duodenum; K29.80 Duodenitis without bleeding; D12.5 Benign neoplasm of sigmoid colon; K64.0 First degree hemorrhoids | CPT/HCPCS: 43239; 45385 ==

== ENCOUNTER 2025-03-11 13:09 | Outpatient (AMB) | payer OTHER, SELFPAY ==
--- NOTE | 2025-03-11 13:20 | A.OFFVIS_ITS ---
Vital Signs 03/11/25 13:22 Height 5 ft 7 in Weight 230 lb BMI 36.0 BP 146/86 H Blood Pressure Location Rt brachial Position Sitting Pulse 70 Pulse Source Pulse Oximeter Pulse Oximetry (%) 99 Oxygen Delivery Method Room Air Intake Visit Reasons: S/P double; Dr. Livingston Intake Note: ESTABLISHED PATIENT for GERD mgmt + s/p delilah w/ Yara 02/26. Advised pt today of intent to perform H Pylori BT for 2 weeks from now. Pt aware of plan. Chief Complaint; Pt denies any new concerns. Pt comments that she is doing well when she remembers to take her medications as instructed. Pt was given instructions for H Pylori Testing today. Product Tester Fiberglass Required: No Accompanied by: Self / Same As Patient Allergies No Known Allergies [No Known Allergies*] Allergy (Verified 03/11/25 13:21) HPI HPI S/P double; Dr. Livingston: Details: LAST VISIT Chronic GERD Screen for colon cancer Constipation Postprandial abdominal bloating Plan Patient denies any cardiac or respiratory symptoms.? Denies any issues with anesthesia in the past.? Denies any history of sleep apnea.? No history infectious diseases in the past or present.? Not on any anticoagulation therapy.? No family or personal history of colon cancer or polyps.? Patient has been reporting constipation. Patient was encouraged to increase fiber in her diet and takes docusate sodium daily. Increase fluid intake and activity to p romote better bowel motility. Continue omeprazole. Avoid dietary triggers and late night snacking. Staying upright for minimum 3 hours after meals discussed with patient. Patient will go for upper endoscopy as she continues to have symptoms despite taking PPI. Patient denies melena, hematochezia, unintentional weight loss or ribbon like stools.? Discussed at length the pre-procedure,? prep, diet & medications as well as what to expect prior, during and after the procedure.?? Stressed the importance of good bowel prep.? Recommended the use of Vaseline or Calmoseptine OTC & baby wipes with bowel movements to promote comfort.? ?Patient verbalizes understanding and agrees to plan of care.? She was given the opportunity to ask questions and all questions answered.? We will see her after the procedure.? Medications New bisacodyl (Dulcolax (bisacodyl)) Start taking 2 tablet every night 7 days before the procedure and 1 day before procedure take 4 tablets at noon time followed by MiraLax prep 10 mg (2 x 5 mg) PO BEDTIME 16 tabs 0RF Z12.11 polyethylene glycol 3350 (Miralax) As directed by gastroenterology department at [facility] 238 grams PO ONCE 238 grams 0RF Z12.11 UPPER ENDOSCOPY AND COLONOSCOPY Findings: Larynx:normal Esophagus: GE junction at 37 cm, diaphragm hiatus at 37 cm, bx taken from GEJ, distal and proximal esophagus Stomach: mild erythema, and one erosion seen with fundic gland polyps. Biopsies were obtained. Grade 2 flap valve on retroflexed examination of the cardia. Duodenum: patchy erythema consistent with peptic injury Intervention: Biopsies as noted above, Colonoscopy Findings: Terminal Ileum-normal Cecum:normal Ascending Colon: normal Transverse Colon -normal Descending Colon:normal Sigmoid Colon: 6-8 mm sessile polyp removed with cold snare Rectum: Retroflexion with small internal hemorrhoids, grade I Anorectum - normal Colon preparation: [place] Bowel Preparation Scale Right colon; 2 Transverse colon: 2 Left colon; 2 (0 = Unprepared colon segment with mucosa not seen due to solid stool that cannot be cleared. 1 = Portion of mucosa of the colon segment seen, but other areas of the colon segment not well seen due to staining, residual stool and/or opaque liquid. 2 = Minor amount of residual staining, small fragments of stool and/or opaque liquid, but mucosa of colon segment seen well. 3 = Entire mucosa of colon segment seen well with no residual staining, small fragments of stool or opaque liquid) Impression and Post Procedure Diagnosis: Endoscopy Findings: erosive gastritis fundic gland polyps--these are benign duodenitis Colonoscopy Findings: colon polyp x 1 internal hemorrhoids Plan: Await Pathology results Repeat Colonoscopy in 5 years due to polyp or earlier if clinically indicated High fiber diet leaflet avoid straining at stool, epsom salts and sitz bath, anusol supps or cream PATHOLOGY: Diagnosis A. Duodenum, biopsy: Chronic inactive duodenitis. B. Stomach, biopsy: Oxyntic mucosa within normal limits; no Helicobacter organisms seen. C. GE junction, biopsy: - Cardiofundic-type mucosa with mild chronic inactive inflammation; no intestinal metaplasia seen. - Active erosive esophagitis (few neutrophils and eosinophils). D. Esophagus, distal, biopsy: Squamous epithelium within normal limits; no inflammation seen. E. Esophagus, proximal, biopsy: Squamous epithelium within normal limits; no inflammation seen. F. Colon, sigmoid, polypectomy: Tubular adenoma; negative for high-grade dysplasia or carcinoma TODAY'S VISIT Patient is here today for follow-up and to discuss upper endoscopy in colonoscopy results. Both procedures and biopsy results discussed with patient. Patient had esophagitis and gastritis as well as duodenitis. We will order H pylori study. Patient is on PPI currently and H pylori was not found on en doscopy. Patient reports that she just recently started taking PPI. Patient reports that she frequently would forget it. Patient denies dyspepsia, dysphagia or odynophagia reports that she is moving her bowels without any issues. Colonoscopy in 5 years due to polyp, sooner if clinically indicated. Patient denies melena, hematochezia. Patient denies any dyspepsia, dysphagia or odynophagia PFSH Medical History Chronic GERD (04/08/21) Urinary incontinence Incomplete bladder emptying Uterine fibroid Anxiety Surgical History Hx of appendectomy History of esophagogastroduodenoscopy (EGD) Hx of hysterectomy History of loop electrical excision procedure (LEEP) History of breast surgery History of section Family History Father No problems noted. 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[place] [employer] [place] orientation: Straight/Heterosexual Gender identity: Female Cognitive needs: No Hearing needs: No Vision needs: Yes Female Reproductive History Menstrual Age of Menarche: 16 Review of Systems Const Denies weight gain and Denies weight loss ENT Reports no additional complaints, Denies dysphagia and Denies odynophagia Card Reports no additional complaints Resp Reports no additional complaints GI Denies abdominal pain, Denies belching, Denies melena, Reports bloating, Denies change in bowel habits, Reports constipation, Denies dysphagia, Denies excessive flatus, Denies dyspepsia, Reports heartburn (Occasional), Denies diarrhea, Denies loose stools, Denies nausea, Denies odynophagia and Denies vomiting Reports no additional complaints Musc Reports no additional complaints Neuro Reports no additional complaints Psych Reports no additional complaints Endo Reports no additional complaints Physical Exam Vital Signs: Last Vital Signs Pulse 70 03/11/25 13:22 BP 146/86 H 03/11/25 13:22 Pulse Ox 99 03/11/25 13:22 Oxygen Delivery Method Room Air 03/11/25 13:22 BMI result Body Mass Index 36.0 Const General: healthy appearing, no acute distress and well developed Nutritional Appearance: well nourished Orientation/consciousness: patient oriented x3 Resp Effort & Inspection: normal respiratory effort, able to speak in complete sentences, no tracheal deviation and symmetric chest movement Auscultation: clear to auscultation bilaterally Cardio Rate: regular rate GI Inspection: Yes normal to inspection, No distended and Yes obesity Palpation (GI): Soft to palpation, not firm, nontender and No hepatosplenomegaly present Auscultation: normal bowel sounds General: Yes no CVA tenderness Back/Spine/Pelvis Back: no CVA tenderness Skin General skin exam: elasticity normal, turgor normal and dry skin Neuro General: patient oriented x3 Psych Appearance: grossly normal Mental Status: mental status grossly normal Assessment & Plan Assessment & Plan (1) Chronic GERD: Onset Date: 04/08/21 Code(s): K21.9 - Gastro-esophageal reflux disease without esophagitis Category: Medical (2) Constipation: Code(s): K59.00 - Constipation, unspecified Qualifiers: Constipation type: slow transit constipation Qualified Code(s): K59.01 - Slow transit constipation (3) Postprandial abdominal bloating: Code(s): R14.0 - Abdominal distension (gaseous) Plan Patient will return in 2 weeks for H pylori breath test. Patient will start taking famotidine for now and will restart taking her PPI after the testing. Avoid dietary triggers and likely infected staying upright for minimum 3 hours after meals discussed with patient. Continue low FODMAP diet as much as she can. Colonoscopy in 5 years, sooner if clinically necessary. Patient will follow-up in 6 months, sooner on as needed basis. She is agreeable to this plan and verbalizes understanding of instructions. She was given the opportunity to ask questions and all questions answered. Thank you for allowing me to participate in her care Orders: Orders H Pylori Breath Test Today K21.9 - Gastro-esophageal reflux disease without esophagitis Medications: New famotidine (Pepcid) 20 mg PO DAILY 30 tabs 0RF K21.9 - Gastro-esophageal reflux disease without esophagitis Coding Level of Care Code Est Pt Level 3 (39441) Diagnoses Chronic GERD K21.9 Slow transit constipation K59.01 Constipation type: slow transit constipation Postprandial abdominal bloating R14.0 Time Spent (min) 30 Comment 20 minutes spent with patient and additional 10 minutes spent reviewing her records
[2025-03-11 13:22] VITALS: BP 146/86; PULSE 70; O2SAT 99; BMI 36.0
== END 2025-03-11 13:55 | disposition home or self-care (01) ==
LOC: HO.HGI 13:10
PROVIDERS: PCP Nurse Practitioner Family; Visit Provider Nurse Practitioner Family
DX: K21.9 Gastro-esophageal reflux disease without esophagitis (principal); K59.01 Slow transit constipation; R14.0 Abdominal distension (gaseous)
CPT/HCPCS: 99213

== ENCOUNTER 2025-03-26 08:37 | Outpatient (REF) | payer OTHER, SELFPAY ==
[2025-03-26 15:30] LABS: H Pylori Breath Test Negative (Negative)
== END 2025-03-26 08:38 | disposition home or self-care (01) ==
LOC: HO.LNP 08:37
PROVIDERS: PCP Nurse Practitioner Family; Visit Provider Nurse Practitioner Family
DX: K21.9 Gastro-esophageal reflux disease without esophagitis (principal)
CPT/HCPCS: 83013; 99211

== ENCOUNTER 2025-03-26 08:37 | Outpatient (AMB) | payer OTHER, SELFPAY ==
--- NOTE | 2025-03-26 08:49 | AM.OFFVISNUR ---
Intake Visit Reasons: HP BT, HOLD PPI. Allergies No Known Allergies [No Known Allergies*] Allergy (Verified 03/11/25 13:21) Nursing Note Patient presents for collection of H Pylori breath test. Patient has been fasting for 1 hour (nothing to eat, drink, no chewing gum or smoking) has not taken any antacid medication for at least 2 weeks and has no allergies to artificial sweeteners.?? Assessment & Plan Assessment & Plan (1) Chronic GERD: Onset Date: 04/08/21 Code(s): K21.9 - Gastro-esophageal reflux disease without esophagitis Category: Medical Plan Patient presents for collection of H Pylori breath test. Patient has been fasting for 1 hour (nothing to eat, drink, no chewing gum or smoking) has not taken any antacid medication for at least 2 weeks and has no allergies to artificial sweeteners.???This test checks for an overgrowth of bacteria in your stomach. We all have bacteria but some may have more than others. It is treatable. if the test comes back negative there is nothing else to do. If the test result is positive we will treat you with 2 antibiotics and a medication to decrease the acid in your stomach (PPI) for 2 weeks. Two weeks after you have completed the treatment we will retest you to make sure the overgrowth has resolved. Patient Instructions: Process for specimen collection and reason for testing was explained to the patient. Specimen collection. Patient instructed to take a deep breath and then exhale into the blue bag, filling it up as much as possible. Patient instructed to drink a mixture of water and the artificial sweetener with a straw. A 15 minute wait period was observed. Patient instructed to take a deep breath and then exhale into the pink bag, filling it up as much as possible.?? Coding Level of Care Code Established Pt Est Pt Level 1 (88417) Patient Type Established Medical Decision Making Straight Forward Diagnoses Chronic GERD K21.9
== END 2025-03-26 08:50 | disposition home or self-care (01) ==
LOC: HO.HGI 08:38
PROVIDERS: PCP Nurse Practitioner Family; Visit Provider Nurse Practitioner Family
DX: K21.9 Gastro-esophageal reflux disease without esophagitis (principal)

== ENCOUNTER 2025-06-03 13:32 | Outpatient (AMB) | payer OTHER, SELFPAY ==
[2025-06-03 13:51] VITALS: BP 154/80; PULSE 98; TEMP 37.4; O2SAT 100; BMI 36.0
--- NOTE | 2025-06-03 13:51 | AM.OFFWIN_ITS ---
Intake Vital Signs 06/03/25 13:51 Height 5 ft 7 in Weight 230 lb BMI 36.0 BP 154/80 H Blood Pressure Location Lt brachial Position Sitting Pulse 98 Pulse Source Pulse Oximeter Temp 99.4 F Temp Source Oral Pulse Oximetry (%) 100 Intake Visit Reasons: EP Sore throat, body aches, fevers, congestion Intake Note: presents with sore/scratchy throat, chest congestion with non productive cough, bilateral ear blocked, slight body aches, sinus congestion, lack of appetite for a total of 3 days. Also notes recent exposure to covid. Patient Tobacco Use Status: Former Tobacco user Allergies No Known Allergies (No Known Allergies*) Allergy (Verified 06/03/25 13:54) Do you need a note to return to daycare/school/sports/work: Yes HPI HPI Comments History of Present Illness Details History - The patient is a 49-year-old female pr esenting with symptoms of an upper respiratory tract infection and concerns about possible COVID-19 exposure. - Symptoms began on Sunday night with co ld chills and body aches, followed by a low-grade fever. - Progressed to include congestion, lack of appetite, and increased body aches by Sunday. - By Sunday, symptoms included severe c ongestion and a persistent cough, exacerbated by movement. - The patient reports a history of expos ure to COVID-19 through her brother and his children, who were symptomatic last week. - The patient works in a [employer] and is concerned about transmitting illness to patients. - Reports blocked ears and a sensation o f fullness. - She has had a low grade fever. - She states that the cough is worse whe n she is active and its a tickle in her throat with a dry cough. - She denies n/v/d, abd pain, chest pain , or SOB. Physical Exam General: Cooperative, healthy appearing, comfortable and no acute distress Orientation/consciousness: Patient oriented x3 Limitations: No limitations Head: Normal to inspection Ears: Hearing grossly normal bilaterally, external ears normal, fluid in both ears. TM is not bulging. Nose: Normal external nose present, normal nares present, and no nasal discharge present. Face and sinus: Sinuses nontender to palpation. Mouth: Normal oral and palatal mucosa present and moist mucous membranes noted. Throat: Tonsils normal. Uvula is midline. Posterior oropharynx with erythema and no exudates. Eyes: Appearance normal, both eyes and all related structures Neck: Normal visual inspection, full ROM. No lymphadenopathy noted. Respiratory: Clear to auscultation bilaterally. Normal respiratory effort, able to speak in complete sentences. No respiratory distress, not tachypneic, no tripod positioning and no use of accessory muscles. Patient reports chest heaviness and dry cough that worsens with movement. Cardiovascular: Regular rate and rhythm. Normal S1 and S2 Skin: No rashes or lesions noted Patient was informed and verbally consented to the use of an ambient scribe for clinic note documentation during this visit [facility] Medical History Chronic GERD (04/08/21) Urinary incontinence Incomplete bladder emptying Uterine fibroid Anxiety Surgical History Hx of appendectomy History of esophagogastroduodenoscopy (EGD) Hx of hysterectomy History of loop electrical excision procedure (LEEP) History of breast surgery History of section Family History Father No problems noted. 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[place] [employer] [place] Sexual orientation: Straight/Heterosexual Gender identity: Female Cognitive needs: No Hearing needs: No Vision needs: Yes Female Reproductive History Menstrual Age of Menarche: 16 Review of Systems Const All systems reviewed & are unremarkable except as noted in HPI and below Physical Exam Vital Signs: Last Vital Signs Temp 99.4 F 06/03/25 13:51 Pulse 98 06/03/25 13:51 BP 154/80 H 06/03/25 13:51 Pulse Ox 100 06/03/25 13:51 BMI result Body Mass Index 36.0 Office Procedures Nebulizer Treatment Nebulizer Treatment [id number] RX initial, or Nebulizer Subsequent Treatment Office Meds ipratropium 0.5 mg-albuterol 3 mg (2.5 mg base)/3 mL nebulization soln Performing Provider: Pippa Ross PA-C [place] [facility] [place] [facility] Administered by: iPppa Ross PA-C on 06/03/25 14:54 Dose Route Admin Location Dispensed Lot Number Expiration Date [facility] Assistant 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 - Prescribe a decongestant to address ear blockage and congestion. - Provide an inhaler for respiratory symptoms. - Recommend cough medicine to manage persistent cough. - Advise COVID-19 testing due to recent exposure and symptoms. - will give her a work note - follow up with her PCP Orders: Orders AMB Rapid Strep Screen Today Z13.9 - Encounter for screening, unspecified SARS-CoV2/FLU/RSV Today R09.89 - Other specified symptoms and signs involving the circulatory and respiratory systems AMB Nebulizer Treatment Today R05.9 - Cough, unspecified Medications: New benzonatate 100 mg PO bid-tid PRN 21 caps 0RF Cough 7 days cetirizine-pseudoephedrine 5-120 mg ER 1 tab PO BID 14 tabs 0RF 7 days prednisone 40 mg (2 x 20 mg) PO DAILY 10 tabs 0RF Coding Level of Care Code Est Pt Level 4 (40814) Diagnoses URI with cough and congestion J06.9 CPT Codes Nebulizer Treatment - Nebulizer Treatment, initial or subsequent: 97004- Nebulizer/MDI RX initial, or Nebulizer Subsequent Treatment ([id number])
== END 2025-06-03 15:46 | disposition home or self-care (01) ==
PROVIDERS: PCP Nurse Practitioner Family; Visit Provider Physician Assistant Medical
DX: J06.9 Acute upper respiratory infection, unspecified (principal); Z13.9 Encounter for screening, unspecified; R05.9 Cough, unspecified

== ENCOUNTER 2025-06-03 13:32 | Outpatient (REF) | payer OTHER, SELFPAY ==
[2025-06-03 18:55] LABS: Resp Syncy Virus RNA Qual PCR NEGATIVE (Negative); SARS COV2 PCR INHOUSE NEGATIVE (Negative)
== END 2025-06-03 13:33 | disposition home or self-care (01) ==
LOC: HO.LNP 13:32
PROVIDERS: PCP Nurse Practitioner Family; Visit Provider Physician Assistant Medical
DX: R09.89 Other specified symptoms and signs involving the circulatory and respiratory systems (principal); J06.9 Acute upper respiratory infection, unspecified; Z13.89 Encounter for screening for other disorder; R05.9 Cough, unspecified; Z87.891 Personal history of nicotine dependence
CPT/HCPCS: 87637; 87880; 94640